=== PATIENT | female | born 1950 | race Caucasian/White ===

== ENCOUNTER 2017-09-04 10:01 | Emergency (ER) | payer MEDICARE, BC ==
[2017-09-04 10:21] VITALS: BP 104/58
--- NOTE | 2017-09-04 11:12 | UC ---
Skin Complaint HPI - HPI Summary HPI Summary: History of PMR as well as recurrent intertrigo in the left axilla. Began a steroid pulse pack for suspected flare of PMR, with an increase in left axillary rash. Has been applying lotrisone cream to the left axilla without relief of rash, and increasing pain in the armpit She has diffuse pain in the joints, especially in the neck area. Recent PT seemed to make this worse. Labs reviewed from last week; normal white count, CRP is 6.7. - History of Current Complaint Chief Complaint: UCSkin Time Seen by Provider: 09/04/17 10:58 Stated Complaint: SKIN COMPLAINT - LEFT ARMPIT Hx Obtained From: Patient Hx Last Menstrual Period: n/a Onset/Duration: Gradual Onset, Lasting Days - 4 Timing: Constant Onset Severity: Mild Current Severity: Moderate Pain Intensity: 5 Location: Discrete - left axilla only Aggravating Factor(s): Clothing, Touch Alleviating Factor(s): Other - position--holding her arm up Associated Signs & Symptoms: Positive: Negative Similar Episode/Dx as: intertrigo - Allergy/Home Medications Allergies/Adverse Reactions: Allergies Allergy/AdvReac Type Severity Reaction Status Date / Time carisoprodol Allergy Hives Verified 09/04/17 10:15 Sulfa (Sulfonamide Allergy Hives Verified 09/04/17 10:15 Antibiotics) azithromycin AdvReac Diarrhea Verified 09/04/17 10:15 Home Medications: Home Medications Ascorbic Acid TAB* [Vitamin C TAB*] 500 mg PO DAILY 09/04/17 [History Confirmed 09/04/17] Cholecalciferol TAB* [Vitamin D TAB*] 1,000 unit PO DAILY 09/04/17 [History Confirmed 09/04/17] Clotrimazole/Betamethasone* [Lotrisone Cream*] 1 applic TOPICAL TID 09/04/17 [ History Confirmed 09/04/17] Folic Acid TAB* [Folvite TAB*] 1 mg PO DAILY 09/04/17 [History Confirmed ] Methotrexate TAB* 7.5 mg PO FR 09/04/17 [History Confirmed 09/04/17] Hickman-3 Fatty Acids (Nf) [Fish Oil (NF)] 1,000 mg PO DAILY 09/04/17 [History Confirmed 09/04/17] Pantoprazole TAB (NF) [Protonix TAB (NF)] 40 mg PO DAILY 09/04/17 [History Confirmed 09/04/17] Rosuvastatin (NF) [Crestor (NF)] 10 mg PO DAILY 09/04/17 [History Confirmed ] SUMAtriptan TAB* [Imitrex TAB*] 100 mg PO SEE INSTRUCTIONS 09/04/17 [History Confirmed 09/04/17] Venlafaxine EXT RELEASE CAP* [Effexor Xr CAP*] 37.5 mg PO EVERY OTHER DAY [History Confirmed 09/04/17] metFORMIN* [Glucophage 500 MG TAB *] 500 mg PO BID 09/04/17 [History Confirmed 09/04/17] Review of Systems Constitutional: Fatigue Skin: Rash Musculoskeletal: Arthralgia, Myalgia Is Patient Immunocompromised?: Yes - potentially; on MTX All Other Systems Reviewed And Are Negative: Yes PMH/Surg Hx/FS Hx/Imm Hx - Additional Past Medical History Additional PMH: Polymyalgia rheumatica Endocrine History: Diabetes Other History Of: Anticoagulant Therapy - Aspirin. Negative For: HIV, Hepatitis B, Hepatitis C - Surgical History Surgical History: Yes Surgery Procedure, Year, and Place: 03/2014 RIGHT WRIST CARPAL TUNNEL RELEASE, [facility]; LT CARPAL TUNNEL RELEASE 2 MONTHS LATER, [facility] Cataract SURGERY 2015. right knee replacement - Family History Known Family History: Positive: Hypertension Negative: Cardiac Disease - Social History Occupation: Retired Lives: With Family Alcohol Use: None Substance Use Type: None Smoking Status (MU): Former Smoker Type: Cigarettes Amount Used/How Often: 1 PPD x 20 Years Have You Smoked in the Last Year: No When Did the Patient Quit Smoking/Using Tobacco: ~1992 - Immunization History Most Recent Influenza Vaccination: no Physical Exam Triage Information Reviewed: Yes Appearance: Well-Appearing - alert, looks chronically unwell, Well-Nourished, Pain Distress - mild Vital Signs: Initial Vital Signs Temp 98.6 F 09/04/17 10:10 Pulse 92 09/04/17 10:10 Resp 16 09/04/17 10:10 BP 104/58 09/04/17 10:10 Pulse Ox 99 09/04/17 10:10 Vital Signs Reviewed: Yes Eyes: Positive: Conjunctiva Inflamed ENT: Positive: Pharynx normal Neck: Positive: Supple, Nontender, No Lymphadenopathy Respiratory: Positive: Lungs clear, Normal breath sounds Cardiovascular: Positive: RRR, No Murmur Musculoskeletal Exam: Other - not fully assessed, tenderness in the sternomastoid area. Neurological: Positive: Alert, Muscle Tone Normal Psychological Exam: Normal Skin Exam: Other - left axilla with confluent area of erythema and skin maceration with satellite lesions, approx 10 x 12 cm area. Course/Dx - Course Course Of Treatment: nystatin and fluconazole for intertrigo. - Differential Diagnoses - Skin Complaint Differential Diagnoses: Cellulitis, Other - Candidal skin reaction - Diagnoses Provider Diagnoses: intertrigo left axilla Discharge - Sign-Out/Discharge Documenting (check all that apply): Discharge/Admit/Transfer - Discharge Plan Condition: Stable Disposition: HOME Prescriptions: Fluconazole 100 MG TAB* [Diflucan 100 MG TAB*] 100 mg PO DAILY #5 tab Nystatin TOP POWDER* 1 applic TOPICAL TID #1 btl Patient Education Materials: Skin Yeast Infection (ED) Referrals: Urban Tripp MD [Primary Care Provider] - Additional Instructions: Begin use of fluconazole 100mg once daily for 5 days to treat the infection in the left axilla. There is no apparent interaction with any of your medications, but stop this medication should you develop nausea or abdominal pain. After cleansing the skin in the left armpit with a warm clean wet facecloth, dry the area well followed by application of nystatin powder. You should see significant improvement in 2 to 3 days. Follow up with Dr. Menchaca as arranged. - Billing Disposition and Condition Condition: STABLE Disposition: HOME
== END 2017-09-04 11:43 | disposition home or self-care (01) ==
LOC: UCCORT 10:01
DX: L30.4 Erythema intertrigo (principal); Z88.1 Allergy status to other antibiotic agents; Z88.2 Allergy status to sulfonamides; Z88.8 Allergy status to other drugs, medicaments and biological substances; E11.9 Type 2 diabetes mellitus without complications; Z79.84 Long term (current) use of oral hypoglycemic drugs; M35.3 Polymyalgia rheumatica; Z87.891 Personal history of nicotine dependence
CPT/HCPCS: 99213; G0463

== ENCOUNTER 2017-09-28 11:50 | Emergency (ER) | payer MEDICARE, BC ==
--- OUTSIDE RECORDS SUMMARY | 2017-09-28 12:02 | XMS REPORT ---
:1950 External Reference #:[id number] Author Organization [facility] Address [address] [place] [address] Phone [phone] Care Team Providers Name Role Phone HCP given Primary Care Physician Unavailable Payers Type Date Identification Numbers Payment Provider Subscriber Medicare Primary Effective: Policy Number: [employer] [facility] Jane Magana 2014 [id number] Services PayID: [id number] [address] [place] [address] Medigap Part B Effective: Policy Number: Rachel Mccabe 2011 [id number] Ind/Ppo/Hmo/Pos Tiffany Group Number: INDEMNI [address] [address] Group Name: [id number] ADELITA Judd [id number] PayID: [id number] Problems Date Description Provider Status Onset: 11/24/2004 Generalized anxiety disorder Urban Tripp M.D. Active Onset: 06/04/2009 Intrinsic asthma without status Urban Tripp M.D. Active asthmaticus Onset: 06/04/2009 Allergic rhinitis Urban Tripp M.D. Active Onset: 03/28/2015 Vitamin D deficiency Jorge ePnn D.O. Active Onset: 04/07/2015 Neck pain Jorge Penn D.O. Active Onset: 09/15/2015 Obesity Urban Tripp M.D. Active Onset: 03/19/2016 Localized, primary osteoarthritis Urban Tripp M.D. Active Onset: 04/07/2016 Polymyalgia rheumatica Leida Zhu PA Active Onset: 08/22/2017 Type 2 diabetes mellitus Urban Tripp M.D. Active Family History Date Family Member(s) Problem(s) Comments Father Allergic Rhinitis Father Heart Disease Father Alzheimer's Disease Father Allergic rhinitis, heart disease, alzheimer's disease. Mother High Blood Pressure Mother Hypercholesterolemia Mother Arrhythmia tachyarrythmia, Dx'd in her 90s, caused recurrent syncope Mother High blood pressure, hypercholesterolemia Number of Siblings 1 brother Social History Type Date Description Comments Education Highest level completed=post grad Marital Status Patient is Employment Not currently working. Retired June ([employer]) Cigarette Use Denies Cigarette Use ETOH Use 11/03/2015 Denies alcohol use Personal Habits Denies cigarette use. Drinks on average 2 sodas a day. Moderate amount of sun exposure and pt states sometimes uses sunscreen. Always uses a seat belt. Sexual Hx The patient is currently sexually active. First intercourse was at age 20. The patient has had 3 sexual partners. Pt states she is heterosexual. Allergies, Adverse Reactions, Alerts Date Description Reaction Status Severity Comments 03/25/2004 Soma Compound active Hives 03/25/2004 Sulfa active in childhood 11/16/2011 Zithromax active extreme diarrhea Medications Medication Date Status Form Strength Qnty SIG Indications Ordering Provider Itraconazole 09/10 Active Capsules 100mg 120ca take 2 R21 ps capsule by Jorge, mouth every D.O. 12 hours for 1 month Ciclopirox 09/10 Active Solution 8% 13.2m apply to B37.2 [facility] right foot Jorge, nails D.O. adjacent skin and affected nails daily remove weekly with nail alcohol Folic Acid 08/31 Active Tablets 1mg 30tab 1 tablet by Unknown s mouth daily Metformin HCL 08/22 Active Tablets 500mg 1 by mouth E11.65 Silcoshaina, every day Vadim Duggan PT For Right 08/22 Active evaluate and M25.511 Silcoshaina, Shoulder Pain treatUrban modalities as M.DLiborio needed, instruct in hep Methotrexate 08/21 Active Tablets 2.5mg 3 tabs M06.00 Unknown (7.5mg) by mouth once weekly for lupus Rosuvastatin 05/06 Active Tablets 10mg 90tab take one E11.65 Qasim, Calcium s tablet by grzegorz Duggan every M.D. day to lower cholesterol and reduce risk of heart disease Phendimetrazine 03/19 Active Tablets 35mg 180ta 2 by mouth E66.9 Silcoff, Tartrate bs three times a Urban, day 1 hour M.D. before meals; for weight loss Vitamin D 03/18 Active one po daily Clotrimazole/Bet 12/27 Active Cream 1-0.05% 45uni apply to B37.2 Fili amethasone ts affected area Jorge, Dipropionate in left D.O. armpit 3 times a day as needed for rash Freestyle Lite 06/29 Active Strips 200un or E11.65 Sopchak, Test its appropriate Jorge, testing D.O. strips for patients device, test 1-4 times daily as directed Hydrocodone-Acet 04/07 Active Tablets 5-325mg 60tab 1 tablet M25.561 Silcoff, aminophen s every 6 hours Urban, as needed for M.D. severe pain Rogaine 03/18 Active Solution 2% apply twice daily Fish Oil 03/31 Active Capsules one po daily Hydroxyzine HCL 03/10 Active Tablets 25mg 90tab 1 by mouth Silcoff s three times a Urban, day as needed M.D. for itching or sleep Pantoprazole 09/25 Active Tablets 40mg 90tab Take 1 Tablet K21.9 Silcoff, Sodium DR eckert Daily For Urban Acid Reflux M.D. Antacid 09/24 Active Chewtabs as needed Venlafaxine HCL 06/26 Active Caps ER 37.5mg 90cap Take 1 F41.1 Silcoff, ER 24HR s Capsule Every Urban, One To Two M.D. Days For Anxiety Imitrex 01/27 Active Tablets 100mg 27tab 04/12-1 at G43.009 Silcoff s onset of Urban migraine; august M.D. repeat once after 2 hours if needed Calcium + D3 0000 Active Tablets 600-200 1 po daily Unknown Actemra 0000 Active Soln 162mg/0.9 Inject 1 M06.00 Unknown / Prefill ML Syringe Syringe Subcutaneousl y Every 2 Weeks Fluconazole 09/08 Hx Tablets 150mg 9tabs 2 tabs by R21 Qasim mouth day Urban - one, then 1 M.D. 09/10 po x 7 days Prednisone 09/02 Hx Tablets 10mg 30tab taper as Nupur Menchaca s directed x 8 nidia M.D. - days 09/10 Nystatin 12/10 Hx Cream 372121Qdl 30gm apply to B37.2 Silcoff t/GM affected area Payam Duggan (left armpit) M.D. 12/27 three times a day until clear; resume as needed Columbia For Fungus 12/09 Hx Unknown Infection - 03/18 Prednisone 09/20 Hx Tablets 1mg take 6 Nupur Menchaca tablets by nidia M.D. - mouth once 08/21 daily, taper as directed (by 1mg/month) Metformin HCL 07/02 Hx Tablets 500mg 180ta 1 by mouth E11.65 Qasim bs twice a day Urban - for blood M.D. 08/22 sugar control Freestyle Lite 06/29 Hx Device 1unit or any other E11.65 Sopchak, Blood Glucose s covered Jorge, Monitoring - glucometer by D.O. System 12/092017 insurance. Prednisone 06/15 Hx Tablets 10mg 2 tablets Bernarda daily nidia M.D. - 09/20 Methotrexate 06/15 Hx Tablets 2.5mg 4 tablets by M06.00 Nupur Menchaca mouth every nidia M.D. - week; adjust 08/21 dose as directed; for Ra Prednisone 04/07 Hx Tablets 10mg as directed, Nupur Menchaca tapering down nidia M.D. - 06/15 Doxycycline 04/01 Hx Capsules 100mg 20cap 1 capsule po Unknown Hyclate s twice daily x - 10 days 04/11 PT For Back Pain 03/19 Hx evaluate and M25.561 Silcoff, And Right Knee treat, Urban, Pain - instruct in M.D. 06/15 hep, modalities prn. M54.5 PT For Back Pain, 12/24/2015 - Hx M25.561 Silcoff, Radiculopathy (L 03/19/2016 Urban, Foot), Bilateral Knee M.D. OA PT For Bilateral Knee 10/18/2015 - Hx Silcoff, Pain 12/24/2015 Vadim Duggan Womens Multi 09/15/2015 - Hx 1 po daily Unknown 09/20/2016 Phendimetrazine 09/15/2015 - Hx Tablets 35mg 180t 2 by mouth E66.9 Silcoff, Tartrate 12/09/2016 abs three times Urban, a day 1 M.D. hour before meals; for weight loss Voltaren 09/12/2015 - Hx Gel 1% as directed Unknown 09/20/2016 Methylprednisolone 09/11/2015 - Hx Tablets 4mg 1 po daily M79.1 Unknown 10/03/2015 M34.81 M25.50 Plaquenil 08/15/2015 - Hx Tablets 200mg 2 tablets Unknown 03/19/2016 once daily Hydrocodone-Acetaminop 04/14/2015 - Hx Tablets 5-325mg 60ta 1 tabletq 4 M25. Fili, hen 06/25/2015 bs hours as 561 Jorge, needed for D.O. severe pain Vitamin D3 03/28/2015 - Hx Tablets 5000Unit 90ta 1 tab by E55. Fili, 09/20/2016 bs mouth every 9 Jorge, day or 7 D.O. tabs once a week Methylprednisolone 03/20/2015 - Hx Tablets 4mg 150t 6mg daily M79. Fili, 09/15/2015 abs 1 Jorge, D.O. M34.81 M25.50 Methylprednisolone 03/13/2015 - Hx Tablets 4mg 21tabs 24 mg(6 [facility] 03[facility] tablets) on Jorge, day 1, 20 mg D.O. (5 tablets) on day 2, 16 mg (4 tablets) on day 3, 12 mg (3 tablets)day 4, then 2 then 1 tab Hydrocortisone 03/03/2015 - Hx Ointment 2.5% Unknown 04/22/2015 Phendimetrazine 12/09/2014 - Hx Tablets 35mg 180tabs 2 by mouth E66.9 Sopchak, Tartrate 04/22/2015 up to three Jorge, times a day D.O. for weight loss Phendimetrazine 08/21/2014 - Hx Caps ER 105mg 30caps 1 capsule 278.00 Silcoff, Tartrate ER 12/09/2014 24HR daily in the kristina Duggan M.D. ideally an hour before breakfast Phendimetrazine 06/19/2014 - Hx Tablets 35mg 90tabs 1 by mouth 278.00 Silcoff, Tartrate 08/21/2014 three times Urban, a day 1hr M.D. before meals; for weight loss Cetirizine HCL 09/25/2013 - Hx Tablets 10mg 1 by mouth 708.9 Silcoff, 04/22/2015 every day as Urban needed for M.D. hives PT For Suspected 07/31/2013 - Hx please 338.29 Silcoff, Bilateral Piriformis 09/24/2013 evaluate and Urban Syndrome Vadim paniagua instruct in hep, modalities prn Ventolin HFA 06/26/2013 - Hx Aerosol 108(9 54units Use 2 Puffs 786.09 Silcoff, 12/09/2016 0Base Every 4 Urban ) Hours as Vadim mcg/A Needed And ct Use 15 To 30 Minutes Before Exercise 493.10 PT For Suspected 01/09/2013 - Hx please 338.29 Silcoff, Bilateral 06/25/2013 evaluate and Vadim Duggan Piriformis treat, Syndrome instruct in hep, modalities prn Venlafaxine HCL 12/08/2012 - Hx Caps ER 37.5 90ca 1 by mouth 300.02 Silcoff, ER 06/26/2013 24HR mg ps every day for Vadim Duggan anxiety Qsymia 09/22/2012 - Hx Caps ER 11.2 30ca 1 by mouth 278.00 Silcoff, 06/26/2013 24HR 5-69 ps every morning Vadim Duggan mg for weight loss Qsymia 03/14/2012 - Hx Caps ER 3.75 14ca 1 by mouth 278.00 Silcoff, 03/28/2012 24HR -23m ps every morning Vadim Duggan g for 2 weeks, then switch to the 7.5/46mg strength Qsymia 03/14/2012 - Hx Caps ER 7.5- 30ca 1 by mouth 278.00 Silcoff, 09/22/2012 24HR 46mg ps every morning Vadim Duggan for weight loss PT For Bilat 11/16/2011 - Hx evaluate and 719.45 Silcoff, Buttock Pain 05/16/2012 treatUrban M.D. (Suspected instruct in Piriformis hep, Syndrome) modalities prn Azithromycin 08/30/2011 - Hx Tablets 250m 6tab 2 by mouth 786.2 Silcoff , 09/04/2011 g s once today Vadim Duggan then 1 by mouth once daily for 4 more days B Complex 08/30/2011 - Hx Tablets 1 by mouth 327.52 Silcoff, 06/26/2013 once daily for Vadim Duggan muscle cramps; stop after a couple of months if not helpful Qvar 08/02/2011 - Hx Aerosol 80mc 26.1 2 puffs 493.10 Silcoff, 06/26/2013 g/Ac gm 2x/day; constance Duggan M.D. t after use 493.12 Prednisone 08/01/2011 - Hx Tablets 20mg 6tabs 2 tabs once 493.12 Unknown 08/04/2011 daily for 3 days Xopenex 08/01/2011 - Hx Nebulizer 1.25mg/3ML 1 nebule every 493.12 Unknown 07/31/2012 6hrs as needed for asthma symptoms 493.10 Tramadol HCL 08/06/2010 - Hx Tablets 50mg 40tabs 1-2 q6 hrs 724.3 Silcoff, 10/29/2010 Vadim Duggan Fluticasone 06/04/2009 - Hx Suspension 50mcg/A 3units 2 sprays 477.9 Silcoff, Propionate 09/22/2012 ct into each Urban nostril qd M.DLiborio prn for nasal allergies Ventolin HFA 04/19/2009 - Hx Aerosol 108(90B 18gm 2 puffs q4h 786.09 Silcoff, 06/26/2013 ase) prn; use wili Duggan/christa 15-30min M.DLiborio before exercise 493.10 Alprazolam 03/14/2009 - Hx Tablets 0.5mg 20tabs 1/2-1 po q4h 300.02 Silcoff, 06/26/2013 prn for adelina Duggan M.D. Loratadine 09/11/2008 - Hx Tablets 10mg 1 po qd prn 477.9 Silcoff, 06/26/2013 for paige Duggan M.D. PT For Lumbar 04/19/2008 - Hx evaluate and 724.4 Silcoff, Radiculopathy 09/10/2008 Urban paniagua, (VS Ischial modalities Sissy.Jannie Bursitis) Left prn, Side instruct in hep Medrol Dosepak 04/19/2008 - Hx Tablets 4mg 1Pack use as 724.4 Silcoff, 04/25/2008 directed Vadim Duggan Tramadol HCL 04/19/2008 - Hx Tablets 50mg 30tabs 1-2 po q6h 724.4 Silcoff, 09/10/2008 prn for pain Vadim Duggan PT For R 04/04/2008 - Hx evaluate and 719.41 Silcoff, Shoulder Pain 09/10/2008 treatUrban, instruct in MCyril Hep, modalities prn Effexor XR 09/22/2007 - Hx Caps ER 37.5mg 90caps 1 by mouth 300.02 Silcoff, 12/08/2012 24HR every day leigh Duggan anxiety Vadim Topamax 09/19/2006 - Hx Tablets 50mg 180tabs 1 PO bid 784.0 Silcoff, 09/10/2008 Vadim Duggan 346.10 Optivar 01/19/2006 - Hx Solution 0.05% 1units 1 gt bid prn To 372.14 Silcoff, 09/10/2008 Affected Eye(S) Vadim Duggan Topamax 07/13/2005 - Hx Tablets 25mg 360tabs 2po qam, 1 po 784.0 Silcoff, 09/19/2006 in late Vadim Duggan afternoon; in crease the afternoon dose to 2 pills after 1 week if tolerating it well 346.10 Effexor XR 04/13/2005 - Hx Capsules 75mg 90caps 1 po qd 300.02 Silcoff, 09/22/2007 Vadim Duggan Axert 04/13/2005 - Hx Tablets 12.5mg 18tabs 1 po prn 784.0 Silcoff, 01/27/2007 migraineUrban M.D. may repeat in 2 hours 346.10 Relpax 03/12/2005 - Hx Tablets 40mg 1Sample 1 pill daily 784.0 Silcoff, 04/13/2005 as needed for Urban migraines; M.DLiborio may repeat dose after 2 hours; maximum 2 pills in 24 hours. Effexor XR 03/12/2005 - Hx Capsules 37.5mg 60caps 1 po qd for 1 300.02 Silcoff, 04/13/2005 week then 2 Urban, po qd Vadim Lexapro 11/24/2004 - Hx Tablets 10mg 30tabs 1 po qd 300.02 Silcoff, 03/12/2005 Vadim Duggan Amoxicillin 03/25/2004 - Hx Tablets 500mg 30tabs 1 po tid 461.9 Silcoff , 04/04/2004 Vadim Duggan Flexeril 03/25/2004 - Hx Tablets 10mg 30tabs 1/2 - 1 po 723.1 Silcoff, 04/24/2004 tid prn for Urban neck pain Vadim Amoxil 02/05/2004 - Hx Tablets 500mg 30tabs 1 po tid for 461.9 Silcoff, 02/15/2004 10 days for Urban sinusitis Sissy.DLiborio Alprazolam 11/22/2003 - Hx Tablets 0.5mg 180tabs 1-2 po q4h 300.02 klepack 09/10/2008 anxiety Flonase 11/22/2003 - Hx Columbia 50mcg/Sp 3units 2 sprays in 477.8 Silcoff , 09/10/2008 ray each nostril Urban once A day M.DLiborio prn 477.9 Ibuprofen - Hx 200mg as needed Unknown 04/22/2015 Calcium/Vit D - Hx Tablets 750mg 1 po qd Unknown 06/26/2013 H1N1 Swine Flu - Hx Injection Silcoff, Vaccine 06/04/2009 Vadim Duggan Immunizations CPT Code Status Date Vaccine Lot # [id number] Given 12/24/2015 Pneumococcal Immunization [id number] 62090 Given 12/24/2015 Influenza Vaccine Split Virus Preservative Free Im [id number] Use 04508 Given 02/18/2015 Influenza Vaccine Split Virus Preservative Free [id number] Use 38587 Given 12/16/2014 Influenza Virus Vaccine, Quadrivalent, Split, Preservative Free 13694 Given 12/09/2014 Prevnar 13 [id number] 68870 Given 01/09/2013 Zostavax [id number] 35892 Given 01/09/2013 Flu, Split Virus 3Yrs [id number] 84001 Given 03/23/2010 Flu, Split Virus 3Yrs 49714 Given 12/02/2009 Pneumococcal Immunization [id number] 38118 Given 12/02/2009 Adacel or Boostrix, TDaP [id number] Refused 05/17/2011 Zostavax [id number] Refused 06/04/2009 Flu, Split Virus 3Yrs Vital Signs Date Vital Result Comment 09/10/2017 Body Temperature 97.8 F 09/08/2017 BP Systolic 122 mmHg BP Diastolic 80 mmHg Body Temperature 97.8 F 08/22/2017 BP Systolic 120 mmHg BP Diastolic 72 mmHg Height 61.25 inches 5'1.25" with shoes Weight 181.00 lb with shoes BMI (Body Mass Index) 33.9 kg/m2 05/06/2017 BP Systolic 130 mmHg BP Diastolic 85 mmHg Weight 177.00 lb 03/19/2017 Weight 179.00 lb 12/10/2016 BP Systolic 142 mmHg BP Diastolic 80 mmHg BP Systolic Recheck 128 mmHg BP Diastolic Recheck 70 mmHg Height 61 inches 5'1" Weight 178.00 lb BMI (Body Mass Index) 33.6 kg/m2 09/21/2016 BP Systolic 140 mmHg BP Diastolic 90 mmHg Weight 167.00 lb 06/29/2016 BP Systolic 118 mmHg BP Diastolic 74 mmHg 06/16/2016 BP Systolic 122 mmHg BP Diastolic 78 mmHg Height 60.75 inches 5'0.75" Weight 171.00 lb BMI (Body Mass Index) 32.6 kg/m2 04/07/2016 BP Systolic 130 mmHg BP Diastolic 78 mmHg 03/19/2016 BP Systolic 128 mmHg BP Diastolic 80 mmHg Weight 171.00 lb 12/24/2015 BP Systolic 112 mmHg BP Diastolic 74 mmHg Weight 171.00 lb 11/03/2015 BP Systolic 122 mmHg BP Diastolic 78 mmHg Height 61.25 inches 5'1.25" with shoes Weight 177.00 lb with shoes BMI (Body Mass Index) 33.2 kg/m2 09/15/2015 BP Systolic 112 mmHg BP Diastolic 80 mmHg Weight 185.00 lb /shoes 04/22/2015 BP Systolic 124 mmHg BP Diastolic 72 mmHg Height 60.50 inches 5'0.50" Weight 173.00 lb BMI (Body Mass Index) 33.2 kg/m2 04/14/2015 BP Systolic 120 mmHg BP Diastolic 80 mmHg Weight 173.00 lb with shoes 04/07/2015 BP Systolic 138 mmHg BP Diastolic 80 mmHg Weight 174.00 lb with shoes 03/28/2015 BP Systolic 137 mmHg BP Diastolic 79 mmHg Heart Rate 96 /min 03/13/2015 BP Systolic 120 mmHg BP Diastolic 80 mmHg Body Temperature 98.2 F 02/18/2015 BP Systolic 132 mmHg BP Diastolic 82 mmHg Weight 180.00 lb with shoes 12/09/2014 BP Systolic 128 mmHg BP Diastolic 70 mmHg Weight 180.00 lb 10/02/2014 BP Systolic 130 mmHg BP Diastolic 74 mmHg Heart Rate 80 /min reg Respiratory Rate 12 /min not laboured Height 60.75 inches 5'0.75" Weight 180.00 lb BMI (Body Mass Index) 34.3 kg/m2 08/21/2014 BP Systolic 138 mmHg BP Diastolic 70 mmHg Weight 183.00 lb w/shoes 06/19/2014 BP Systolic 118 mmHg BP Diastolic 70 mmHg Heart Rate 74 /min reg Height 61 inches 5'1" Weight 182.00 lb BMI (Body Mass Index) 34.4 kg/m2 12/19/2013 BP Systolic 120 mmHg BP Diastolic 82 mmHg Weight 179.00 lb 09/25/2013 BP Systolic 100 mmHg BP Diastolic 66 mmHg Heart Rate 84 /min reg Respiratory Rate 12 /min not laboured Height 60.75 inches 5'0.75" Weight 179.00 lb BMI (Body Mass Index) 34.1 kg/m2 06/26/2013 BP Systolic 112 mmHg BP Diastolic 84 mmHg Weight 176.00 lb 03/19/2013 BP Systolic 120 mmHg BP Diastolic 88 mmHg Height 60.75 inches 5'0.75" Weight 175.00 lb BMI (Body Mass Index) 33.3 kg/m2 01/09/2013 BP Systolic 138 mmHg BP Diastolic 80 mmHg Weight 174.00 lb 09/22/2012 BP Systolic 110 mmHg BP Diastolic 74 mmHg Weight 182.00 lb BMI (Body Mass Index) 3.9 kg/m2 05/17/2012 BP Systolic 124 mmHg BP Diastolic 80 mmHg Height 60.25 inches 5'0.25" Weight 186.00 lb BMI (Body Mass Index) 36.0 kg/m2 11/16/2011 BP Systolic 128 mmHg BP Diastolic 78 mmHg Weight 184.00 lb Last Menstrual Period 0 08/30/2011 BP Systolic 120 mmHg BP Diastolic 82 mmHg Heart Rate 88 /min reg Respiratory Rate 16 /min not laboured Body Temperature 98.5 F Height 60 inches 5'0" Weight 188.00 lb BMI (Body Mass Index) 36.7 kg/m2 Last Menstrual Period 0 08/02/2011 BP Systolic 136 mmHg BP Diastolic 82 mmHg Heart Rate 90 /min reg Respiratory Rate 16 /min not laboured O2 % BldC Oximetry 97 % at rest 05/17/2011 BP Systolic 106 mmHg BP Diastolic 78 mmHg 10/30/2010 BP Systolic 110 mmHg BP Diastolic 78 mmHg 08/06/2010 BP Systolic 111 mmHg BP Diastolic 79 mmHg Heart Rate 89 /min 07/23/2010 BP Systolic 143 mmHg BP Diastolic 88 mmHg Heart Rate 85 /min 05/08/2010 BP Systolic 128 mmHg BP Diastolic 80 mmHg 12/02/2009 BP Systolic 118 mmHg BP Diastolic 78 mmHg Height 61 inches 5'1" Weight 180.00 lb BMI (Body Mass Index) 34.0 kg/m2 06/04/2009 BP Systolic 110 mmHg BP Diastolic 78 mmHg 06/04/2009 BP Systolic 110 mmHg BP Diastolic 78 mmHg 03/14/2009 BP Systolic 148 mmHg BP Diastolic 98 mmHg BP Systolic Recheck 132 mmHg R arm sitting; 122/84 L arm BP Diastolic Recheck 96 mmHg R arm sitting; 122/84 L arm Respiratory Rate 16 /min not laboured Weight 177.00 lb 02/17/2009 BP Systolic 118 mmHg BP Diastolic 80 mmHg Body Temperature 98.6 F Weight 173.00 lb Last Menstrual Period 0 09/11/2008 BP Systolic 130 mmHg BP Diastolic 84 mmHg Weight 175.00 lb 04/19/2008 BP Systolic 142 mmHg BP Diastolic 80 mmHg Weight 177.00 lb 03/13/2008 BP Systolic 124 mmHg BP Diastolic 82 mmHg Height 61.25 inches 5'1.25" Weight 177.00 lb BMI (Body Mass Index) 33.2 kg/m2 09/22/2007 BP Systolic 118 mmHg BP Diastolic 78 mmHg Height 61.25 inches 5'1.25" Weight 172.00 lb BMI (Body Mass Index) 32.2 kg/m2 03/22/2007 BP Systolic 120 mmHg BP Diastolic 96 mmHg BP Systolic Recheck 136 mmHg R arm sitting BP Diastolic Recheck 90 mmHg R arm sitting Height 61.25 inches 5'1.25" Weight 166.00 lb BMI (Body Mass Index) 31.1 kg/m2 Last Menstrual Period 0 09/19/2006 BP Systolic 114 mmHg BP Diastolic 80 mmHg Height 61.25 inches 5'1.25" Weight 158.00 lb BMI (Body Mass Index) 29.6 kg/m2 Last Menstrual Period 0 04/27/2006 BP Systolic 116 mmHg BP Diastolic 68 mmHg Height 61.25 inches Weight 157.00 lb BMI (Body Mass Index) 29.4 kg/m2 01/19/2006 BP Systolic 136 mmHg BP Diastolic 82 mmHg Height 61 inches 5'1" Today With Shoes 10/20/04 Weight 157.00 lb BMI (Body Mass Index) 29.7 kg/m2 10/20/2005 BP Systolic 140 mmHg BP Diastolic 75 mmHg BP Systolic Recheck 120 mmHg BP Diastolic Recheck 75 mmHg Height 61 inches 5'1" Today With Shoes 10/20/04 Weight 150.00 lb BMI (Body Mass Index) 28.3 kg/m2 07/13/2005 BP Systolic 134 mmHg BP Diastolic 90 mmHg Heart Rate 74 /min reg Height 61.25 inches 5'1.25" Weight 158.00 lb BMI (Body Mass Index) 29.6 kg/m2 07/13/2005 Height 61.25 inches 5'1.25" 07/13/2005 BP Systolic 134 mmHg BP Diastolic 90 mmHg Height 61.25 inches 5'1.25" Weight 158.00 lb BMI (Body Mass Index) 29.6 kg/m2 04/13/2005 BP Systolic 118 mmHg BP Diastolic 80 mmHg Height 61.25 inches 5'1.25" Weight 151.00 lb BMI (Body Mass Index) 28.3 kg/m2 03/12/2005 BP Systolic 120 mmHg BP Diastolic 82 mmHg Height 61.25 inches 5'1.25" Weight 155.00 lb BMI (Body Mass Index) 29.0 kg/m2 12/29/2004 BP Systolic 100 mmHg BP Diastolic 60 mmHg Height 61.25 inches 5'1.25" Weight 145.00 lb BMI (Body Mass Index) 27.2 kg/m2 11/24/2004 BP Systolic 110 mmHg BP Diastolic 72 mmHg Weight 142.00 lb Last Menstrual Period 0 03/25/2004 BP Systolic 92 mmHg BP Diastolic 68 mmHg Body Temperature 98.1 F Weight 140.00 lb 02/05/2004 Body Temperature 97.8 F Weight 137.00 lb 11/22/2003 BP Systolic 114 mmHg BP Diastolic 76 mmHg Weight 135.00 lb Results Test Date Test Result H/L Range Note Laboratory test finding 09/02/2017 Hemoglobin A1c (Glyco 5.9 % High 4.0- 5.6 1 HGB) Comp Metabolic Panel 09/02/2017 Sodium 139 mmol/L 139-145 Potassium 4.0 mmol/L 3.5-5.0 Chloride 105 mmol/L 101-111 Co2 Carbon Dioxide 25 mmol/L 22-32 Anion Gap 9 mmol/L 2-11 Glucose 156 mg/dL High 70-100 Blood Urea Nitrogen 19 mg/dL 6-24 Creatinine 0.99 mg/dL High 0.51-0.95 BUN/Creatinine Ratio 19.2 8-20 Calcium 9.2 mg/dL 8.6-10.3 Total Protein 6.3 g/dL Low 6.4-8.9 Albumin 4.4 g/dL 3.2-5.2 Globulin 1.9 g/dL Low 2-4 Albumin/Globulin Ratio 2.3 1-3 Total Bilirubin 0.40 mg/dL 0.2-1.0 Alkaline Phosphatase 59 U/L 34-104 Alt 28 U/L 7-52 Ast 30 U/L 13-39 Egfr Non- 55.9 >60 Egfr 72.0 >60 2 Laboratory test finding 09/02/2017 C Reactive Protein 6.74 mg/L High < 5.00 3 CBC Auto Diff 09/02/2017 White Blood Count 4.7 10^3/uL 3.5-10.8 Red Blood Count 4.43 10^6/uL 4.0-5.4 Hemoglobin 14.2 g/dL 12.0-16.0 Hematocrit 42 % 35-47 Mean Corpuscular Volume 95 fL 80-97 Mean Corpuscular Hemoglobin 32 pg High 27-31 Mean Corpuscular HGB Conc 34 g/dL 31-36 Red Cell Distribution Width 14 % 10.5-15 Platelet Count 183 10^3/uL 150-450 Mean Platelet Volume 7.8 um3 7.4-10.4 Abs Neutrophils 3.6 10^3/uL 1.5-7.7 Abs Lymphocytes 0.7 10^3/uL Low 1.0-4.8 Abs Monocytes 0.3 10^3/uL 0-0.8 Abs Eosinophils 0 10^3/uL 0-0.6 Abs Basophils 0 10^3/uL 0-0.2 Abs Nucleated RBC 0 10^3/uL Granulocyte % 77.6 % 38-83 Lymphocyte % 15.3 % Low 25-47 Monocyte % 6.2 % 0-7 Eosinophil % 0.6 % 0-6 Basophil % 0.3 % 0-2 Nucleated Red Blood Cells % 0.1 Laboratory test finding 09/02/2017 Erythrocyte Sed Rate 9 mm/Hr 0-40 4 Laboratory test finding 08/22/2017 Occult Blood, F I T negative Urine Micro Inhouse 08/22/2017 Ua WBC 0-1 5 Ua RBC - 5 Ua Casts - 5 Ua Epi 3-5 5 Ua Other - 5 Ua Glucose - 5 Ua Bilirubin - 5 Ua Ketones - 5 Ua Specific [place] 1.010 5 Ua Blood - 5 Ua PH 6.0 5 Ua Protein tr 5 Ua Urobilinogen - 5 Ua Nitrite - 5 Ua Leukocytes tr 5 Laboratory test finding 06/24/2017 Erythrocyte Sed Rate 6 mm/Hr 0-40 6, 7 CBC Auto Diff 06/24/2017 White Blood Count 5.0 10^3/uL 3.5-10.8 6 Red Blood Count 4.25 10^6/uL 4.0-5.4 6 Hemoglobin 13.8 g/dL 12.0-16.0 6 Hematocrit 41 % 35-47 6 Mean Corpuscular Volume 95 fL 80-97 6 Mean Corpuscular Hemoglobin 33 pg High 27-31 6 Mean Corpuscular HGB Conc 34 g/dL 31-36 6 Red Cell Distribution Width 14 % 10.5-15 6 Platelet Count 282 10^3/uL 150-450 6 Mean Platelet Volume 8 um3 7.4-10.4 6 Abs Neutrophils 1.7 10^3/uL 1.5-7.7 6 Abs Lymphocytes 2.4 10^3/uL 1.0-4.8 6 Abs Monocytes 0.5 10^3/uL 0-0.8 6 Abs Eosinophils 0.4 10^3/uL 0-0.6 6 Abs Basophils 0 10^3/uL 0-0.2 6 Abs Nucleated RBC 0 10^3/uL 6 Granulocyte % 34.7 % Low 38-83 6 Lymphocyte % 47.3 % High 25-47 6 Monocyte % 10.0 % High 0-7 6 Eosinophil % 7.1 % High 0-6 6 Basophil % 0.9 % 0-2 6 Nucleated Red Blood Cells % 0 6 Laboratory test finding 06/24/2017 C Reactive Protein < 1.00 mg/L &lt ; 5.00 6, 8 Comp Metabolic Panel 06/24/2017 Sodium 138 mmol/L 133-145 6 Potassium 4.8 mmol/L 3.5-5.0 6 Chloride 107 mmol/L 101-111 6 Co2 Carbon Dioxide 23 mmol/L 22-32 6 Anion Gap 8 mmol/L 2-11 6 Glucose 96 mg/dL 70-100 6 Blood Urea Nitrogen 23 mg/dL 6-24 6 Creatinine 1.02 mg/dL High 0.51-0.95 6 BUN/Creatinine Ratio 22.5 High 8-20 6 Calcium 9.8 mg/dL 8.6-10.3 6 Total Protein 6.3 g/dL Low 6.4-8.9 6 Albumin 4.5 g/dL 3.2-5.2 6 Globulin 1.8 g/dL Low 2-4 6 Albumin/Globulin Ratio 2.5 1-3 6 Total Bilirubin 0.60 mg/dL 0.2-1.0 6 Alkaline Phosphatase 49 U/L 34-104 6 Alt 30 U/L 7-52 6 Ast 24 U/L 13-39 6 Egfr Non- 54.1 >60 6 Egfr 69.5 >60 6, 9 Laboratory test finding 05/06/2017 Hemoglobin A1c 5.5 Urinalysis With Microscopic 12/28/2016 Urine Color YELLOW Yellow 10 Urine Clarity CLEAR Clear 10 Urine Glucose - Dipstick NEGATIVE mg/dL Negative 10 Urine Bilirubin - Dipstick NEGATIVE Negative 10 Urine Ketone NEGATIVE mg/dL Negative 10 Urine Specific [place] <=1.005 Low 1.010-1.030 10 Urine Blood TRACE Negative 10 Urine PH 5.0 Low 6.5-7.5 10 Urine Protein - Dipstick NEGATIVE mg/dL Negative 10 Urine Urobilinogen - Dipstick 0.2 E.U./dL 0.2-1.0 10 Urine Nitrite - Dipstick NEGATIVE Negative 10 Urine Leuk Esterase SMALL Negative 10 Urine RBC NONE SEEN rbc/hpf 0-2 10 Urine WBC 0-2 wbc/hpf 0-7 10 Urine Epithelial Cells VERY FEW /lpf None Seen 10 Urine Bacteria VERY FEW None Seen 10 Source: URINE, CLEAN CAT <SEE 10, 11 NOTE> Partial Thrombo Time 12/28/2016 Act Partial Thrombo 23.6 seconds 23.4- 35.0 10 PTT Time Anticoagulant Therapy? Unknown 10 Inr/Protime 12/28/2016 Protime 11.6 seconds Low 12.0-14.4 10 Inr 0.9 0.9-1.1 10, 12 Anticoagulant Therapy? Unknown 10 Urine Culture And Sensitivities 12/28/2016 Urine Culture URETHRAL MILEY 10 Quantity 10,000 - 50,000 <SEE NOTE> 10, 13 Laboratory test finding 12/10/2016 Erythrocyte Sed Rate 9 mm/Hr 0-40 14 CBC Auto Diff 12/10/2016 White Blood Count 6.9 10^3/uL 3.5-10.8 Red Blood Count 4.55 10^6/uL 4.0-5.4 Hemoglobin 14.4 g/dL 12.0-16.0 Hematocrit 43 % 35-47 Mean Corpuscular Volume 95 fL 80-97 Mean Corpuscular Hemoglobin 32 pg High 27-31 Mean Corpuscular HGB Conc 33 g/dL 31-36 Red Cell Distribution Width 15 % 10.5-15 Platelet Count 331 10^3/uL 150-450 Mean Platelet Volume 8 um3 7.4-10.4 Abs Neutrophils 4.9 10^3/uL 1.5-7.7 Abs Lymphocytes 1.5 10^3/uL 1.0-4.8 Abs Monocytes 0.4 10^3/uL 0-0.8 Abs Eosinophils 0.1 10^3/uL 0-0.6 Abs Basophils 0 10^3/uL 0-0.2 Abs Nucleated RBC 0 10^3/uL Granulocyte % 70.2 % 38-83 Lymphocyte % 21.4 % Low 25-47 Monocyte % 6.5 % 1-9 Eosinophil % 1.2 % 0-6 Basophil % 0.7 % 0-2 Nucleated Red Blood Cells % 0 Laboratory test finding 12/10/2016 C Reactive Protein < 1.00 mg/L &lt ; 5.00 15 Comp Metabolic Panel 12/10/2016 Sodium 141 mmol/L 133-145 Potassium 4.4 mmol/L 3.5-5.0 Chloride 107 mmol/L 101-111 Co2 Carbon Dioxide 23 mmol/L 22-32 Anion Gap 11 mmol/L 2-11 Glucose 108 mg/dL High 70-100 Blood Urea Nitrogen 28 mg/dL High 6-24 Creatinine 1.14 mg/dL High 0.51-0.95 BUN/Creatinine Ratio 24.6 High 8-20 Calcium 10.2 mg/dL 8.6-10.3 Total Protein 6.6 g/dL 6.4-8.9 Albumin 4.5 g/dL 3.2-5.2 Globulin 2.1 g/dL 2-4 Albumin/Globulin Ratio 2.1 1-3 Total Bilirubin 0.50 mg/dL 0.2-1.0 Alkaline Phosphatase 50 U/L 34-104 Alt 25 U/L 7-52 Ast 22 U/L 13-39 Egfr Non- 47.5 >60 Egfr 61.1 >60 16 Laboratory test finding 09/21/2016 Hemoglobin A1c 6.3 Laboratory test finding 08/16/2016 Point of Care Glucose 129 mg/dL High 74 -106 17 Basic Metabolic Panel 07/26/2016 Sodium 138 mmol/L 133-145 Potassium 3.9 mmol/L 3.5-5.0 Chloride 104 mmol/L 101-111 Co2 Carbon Dioxide 26 mmol/L 22-32 Anion Gap 8 mmol/L 2-11 Glucose 122 mg/dL High 70-100 Blood Urea Nitrogen 25 mg/dL High 6-24 Creatinine 1.06 mg/dL High 0.51-0.95 BUN/Creatinine Ratio 23.6 High 8-20 Calcium 9.8 mg/dL 8.6-10.3 Egfr Non- 51.9 >60 Egfr 66.7 >60 18 Laboratory test 07/26/2016 Fructosamine 202 mcmol/L 200 - 285 19 finding Laboratory test 07/20/2016 Erythrocyte Sed Rate 41 mm/Hr High 0-40 20 finding CBC Auto Diff 07/20/2016 White Blood Count 11.2 10^3/uL High 3.5-10.8 Red Blood Count 4.10 10^6/uL 4.0-5.4 Hemoglobin 11.8 g/dL Low 12.0-16.0 Hematocrit 37 % 35-47 Mean Corpuscular Volume 89 fL 80-97 Mean Corpuscular Hemoglobin 29 pg 27-31 Mean Corpuscular HGB Conc 32 g/dL 31-36 Red Cell Distribution Width 20 % High 10.5-15 Platelet Count 370 10^3/uL 150-450 Mean Platelet Volume 8 um3 7.4-10.4 Abs Neutrophils 9.7 10^3/uL High 1.5-7.7 Abs Lymphocytes 1.0 10^3/uL 1.0-4.8 Abs Monocytes 0.2 10^3/uL 0-0.8 Abs Eosinophils 0.2 10^3/uL 0-0.6 Abs Basophils 0.1 10^3/uL 0-0.2 Abs Nucleated RBC 0.01 10^3/uL Granulocyte % 86.3 % High 38-83 Lymphocyte % 9.2 % Low 25-47 Monocyte % 2.1 % 1-9 Eosinophil % 1.6 % 0-6 Basophil % 0.8 % 0-2 Nucleated Red Blood Cells % 0.1 Laboratory test finding 07/20/2016 C Reactive Protein 19.72 mg/L High &lt ; 5.00 21 Comp Metabolic Panel 07/20/2016 Sodium 137 mmol/L 133-145 Potassium 4.2 mmol/L 3.5-5.0 Chloride 105 mmol/L 101-111 Co2 Carbon Dioxide 24 mmol/L 22-32 Anion Gap 8 mmol/L 2-11 Glucose 141 mg/dL High 70-100 Blood Urea Nitrogen 32 mg/dL High 6-24 Creatinine 0.95 mg/dL 0.51-0.95 BUN/Creatinine Ratio 33.7 High 8-20 Calcium 9.4 mg/dL 8.6-10.3 Total Protein 6.0 g/dL Low 6.4-8.9 Albumin 3.9 g/dL 3.2-5.2 Globulin 2.1 g/dL 2-4 Albumin/Globulin Ratio 1.9 1-3 Total Bilirubin 0.30 mg/dL 0.2-1.0 Alkaline Phosphatase 54 U/L 34-104 Alt 11 U/L 7-52 Ast 13 U/L 13-39 Egfr Non- 58.9 >60 Egfr 75.7 >60 22 Basic Metabolic Panel 06/30/2016 Sodium 136 mmol/L 133-145 Potassium 4.4 mmol/L 3.5-5.0 Chloride 101 mmol/L 101-111 Co2 Carbon Dioxide 28 mmol/L 22-32 Anion Gap 7 mmol/L 2-11 Glucose 192 mg/dL High 70-100 Blood Urea Nitrogen 24 mg/dL 6-24 Creatinine 0.97 mg/dL High 0.51-0.95 BUN/Creatinine Ratio 24.7 High 8-20 Calcium 9.3 mg/dL 8.6-10.3 Egfr Non- 57.5 >60 Egfr 73.9 >60 23 Laboratory test finding 06/30/2016 Fructosamine 206 mcmol/L 200 - 285 24 Laboratory test finding 06/16/2016 Hemoglobin A1c 6.6 Laboratory test finding 12/24/2015 Hemoglobin A1c 5.6 Urine Micro Inhouse 11/04/2015 Ua WBC 0-2 25 Ua RBC 0-1 25 Ua Casts - 25 Ua Epi 2-4 25 Ua Other - 25 Ua Glucose - 25 Ua Bilirubin - 25 Ua Ketones - 25 Ua Specific [place] 1.030 25 Ua Blood - 25 Ua PH 5.0 25 Ua Protein - 25 Ua Urobilinogen - 25 Ua Nitrite - 25 Ua Leukocytes - 25 Occult Blood,Triple 11/03/2015 Misc negative x3 Comp Metabolic Panel 11/03/2015 Sodium 144 mmol/L 133-145 Potassium 4.4 mmol/L 3.5-5.0 Chloride 108 mmol/L 101-111 Co2 Carbon Dioxide 25 mmol/L 22-32 Anion Gap 11 mmol/L 2-11 Glucose 110 mg/dL High 70-100 Blood Urea Nitrogen 23 mg/dL 6-24 Creatinine 1.11 mg/dL High 0.51-0.95 BUN/Creatinine Ratio 20.7 High 8-20 Calcium 9.7 mg/dL 8.6-10.3 Total Protein 6.0 g/dL Low 6.4-8.9 Albumin 4.0 g/dL 3.2-5.2 Globulin 2.0 g/dL 2-4 Albumin/Globulin Ratio 2.0 1-3 Total Bilirubin 0.40 mg/dL 0.2-1.0 Alkaline Phosphatase 55 U/L 34-104 Alt 20 U/L 7-52 Ast 25 U/L 13-39 Egfr Non- 49.2 >60 Egfr 63.2 >60 26 Laboratory test finding 11/03/2015 C Reactive Protein 5.12 mg/L High < 5.00 27 Free T4 (Free Thyroxine) 0.83 ng/dL 0.61-1.12 Vitamin B12 393 pg/mL 180-914 28 Vitamin D Total 25(Oh) 28.0 ng/mL Low 30-50 CBC Auto Diff 11/03/2015 White Blood Count 4.8 10^3/uL 3.5-10.8 Red Blood Count 4.73 10^6/uL 4.0-5.4 Hemoglobin 13.9 g/dL 12.0-16.0 Hematocrit 42 % 35-47 Mean Corpuscular Volume 90 fL 80-97 Mean Corpuscular Hemoglobin 30 pg 27-31 Mean Corpuscular HGB Conc 33 g/dL 31-36 Red Cell Distribution Width 14 % 10.5-15 Platelet Count 322 10^3/uL 150-450 Mean Platelet Volume 9 um3 7.4-10.4 Abs Neutrophils 1.9 10^3/uL 1.5-7.7 Abs Lymphocytes 2.0 10^3/uL 1.0-4.8 Abs Monocytes 0.4 10^3/uL 0-0.8 Abs Eosinophils 0.4 10^3/uL 0-0.6 Abs Basophils 0.1 10^3/uL 0-0.2 Abs Nucleated RBC 0 10^3/uL Granulocyte % 40.2 % 38-83 Lymphocyte % 41.6 % 25-47 Monocyte % 9.2 % High 1-9 Eosinophil % 7.5 % High 0-6 Basophil % 1.5 % 0-2 Nucleated Red Blood Cells % 0.1 Laboratory test finding 11/03/2015 Erythrocyte Sed Rate 20 mm/Hr 0-40 Lyme Disease Serology Negative Negative 29 Vitamin D, 1,25 Dihydroxy 46 pg/mL 18-78 30 Laboratory test finding 09/15/2015 Hemoglobin A1c 7.1 Comp Metabolic Panel 09/09/2015 Sodium 140 mmol/L 133-145 Potassium 4.1 mmol/L 3.5-5.0 Chloride 108 mmol/L 101-111 Co2 Carbon Dioxide 23 mmol/L 22-32 Anion Gap 9 mmol/L 2-11 Glucose 123 mg/dL High 70-100 Blood Urea Nitrogen 15 mg/dL 6-24 Creatinine 0.99 mg/dL High 0.51-0.95 BUN/Creatinine Ratio 15.2 8-20 Calcium 9.4 mg/dL 8.6-10.3 Total Protein 6.2 g/dL Low 6.4-8.9 Albumin 4.0 g/dL 3.2-5.2 Globulin 2.2 g/dL 2-4 Albumin/Globulin Ratio 1.8 1-3 Total Bilirubin 0.40 mg/dL 0.2-1.0 Alkaline Phosphatase 63 U/L 34-104 Alt 24 U/L 7-52 Ast 25 U/L 13-39 Egfr Non- 56.3 >60 Egfr 72.4 >60 31 Laboratory test finding 09/09/2015 C Reactive Protein 7.88 mg/L High < 5.00 32 CBC Auto Diff 09/09/2015 White Blood Count 5.2 10^3/uL 3.5-10.8 Red Blood Count 4.32 10^6/uL 4.0-5.4 Hemoglobin 13.2 g/dL 12.0-16.0 Hematocrit 41 % 35-47 Mean Corpuscular Volume 95 fL 80-97 Mean Corpuscular Hemoglobin 31 pg 27-31 Mean Corpuscular HGB Conc 32 g/dL 31-36 Red Cell Distribution Width 14 % 10.5-15 Platelet Count 328 10^3/uL 150-450 Mean Platelet Volume 8 um3 7.4-10.4 Abs Neutrophils 2.6 10^3/uL 1.5-7.7 Abs Lymphocytes 1.8 10^3/uL 1.0-4.8 Abs Monocytes 0.3 10^3/uL 0-0.8 Abs Eosinophils 0.4 10^3/uL 0-0.6 Abs Basophils 0.1 10^3/uL 0-0.2 Abs Nucleated RBC 0 10^3/uL Granulocyte % 49.5 % 38-83 Lymphocyte % 35.1 % 25-47 Monocyte % 6.6 % 1-9 Eosinophil % 7.6 % High 0-6 Basophil % 1.2 % 0-2 Nucleated Red Blood Cells % 0 Laboratory test finding 09/09/2015 Erythrocyte Sed Rate 25 mm/Hr 0-40 Comp Metabolic Panel 06/09/2015 Sodium 139 mmol/L 133-145 Potassium 3.8 mmol/L 3.5-5.0 Chloride 106 mmol/L 101-111 Co2 Carbon Dioxide 24 mmol/L 22-32 Anion Gap 9 mmol/L 2-11 Glucose 215 mg/dL High 70-100 Blood Urea Nitrogen 24 mg/dL 6-24 Creatinine 0.94 mg/dL 0.51-0.95 BUN/Creatinine Ratio 25.5 High 8-20 Calcium 9.3 mg/dL 8.6-10.3 Total Protein 5.9 g/dL Low 6.4-8.9 Albumin 3.8 g/dL 3.2-5.2 Globulin 2.1 g/dL 2-4 Albumin/Globulin Ratio 1.8 1-3 Total Bilirubin 0.40 mg/dL 0.2-1.0 Alkaline Phosphatase 43 U/L 34-104 Alt 24 U/L 7-52 Ast 12 U/L Low 13-39 Egfr Non- 59.8 >60 Egfr 76.9 >60 33 Laboratory test finding 06/09/2015 C Reactive Protein 5.86 mg/L High < 5.00 34 CBC Auto Diff 06/09/2015 White Blood Count 9.6 10^3/uL 3.5-10.8 Red Blood Count 4.35 10^6/uL 4.0-5.4 Hemoglobin 12.8 g/dL 12.0-16.0 Hematocrit 40 % 35-47 Mean Corpuscular Volume 92 fL 80-97 Mean Corpuscular Hemoglobin 30 pg 27-31 Mean Corpuscular HGB Conc 32 g/dL 31-36 Red Cell Distribution Width 19 % High 10.5-15 Platelet Count 325 10^3/uL 150-450 Mean Platelet Volume 8 um3 7.4-10.4 Abs Neutrophils 5.9 10^3/uL 1.5-7.7 Abs Lymphocytes 3.1 10^3/uL 1.0-4.8 Abs Monocytes 0.5 10^3/uL 0-0.8 Abs Eosinophils 0 10^3/uL 0-0.6 Abs Basophils 0 10^3/uL 0-0.2 Abs Nucleated RBC 0.01 10^3/uL Granulocyte % 61.9 % 38-83 Lymphocyte % 32.1 % 25-47 Monocyte % 5.1 % 1-9 Eosinophil % 0.4 % 0-6 Basophil % 0.5 % 0-2 Nucleated Red Blood Cells % 0.1 Laboratory test finding 06/09/2015 Erythrocyte Sed Rate 20 mm/Hr 0-40 Comprehensive Metabolic Panel 06/04/2015 Glucose 140 mg/dL High 74-106 BUN 23 mg/dL High 7-18 Creatinine 1.1 mg/dL 0.6-1.3 Glom Filtration Rate, Estimate 53 mL/min >60 If >60 mL/min >60 35 BUN/Creat 20.9 ratio Sodium 141 mmol/L 136-145 Potassium 3.8 mmol/L 3.5-5.1 Chloride 102 mmol/L 98-107 Carbon Dioxide 28 mmol/L 21-32 Anion Gap 11 mEq/L 8-16 Calcium 9.4 mg/dL 8.5-10.1 Total Protein 7.1 g/dL 6.4-8.2 Albumin 3.7 g/dL 3.4-5.0 Globulin 3.4 g/dL 1.9-4.3 Alb/Glob 1.1 ratio Bilirubin,Total 0.5 mg/dL 0.2-1.0 Sgot/Ast 17 U/L 15-37 SGPT/Alt 43 U/L 12-78 Alkaline Phosphatase 63 U/L 45-117 CBC 06/04/2015 White Blood Count 12.2 K/uL High 3.1-10.7 Red Blood Count 4.63 M/uL 3.90-5.40 Hemoglobin 13.8 gm/dL 11.6-15.8 Hematocrit 42.0 % 36.0-46.1 Mean Cell Volume 90.7 fl 80.9-99.0 Mean Corpuscular HGB 29.8 pg 25.9-32.7 Mean Corpuscular HGB Conc 32.9 g/dL 30.8-34.3 Platelet Count 354 K/uL 155-360 Red Cell Distri Width %CV 18.8 % High 11.7-14.4 Mean Platelet Volume 9.7 fL 8.9-12.4 Laboratory test finding 06/04/2015 Ua RFX Micro + Culture See Note 36 II Urinalysis With Microscopic 06/04/2015 Urine Color DK YELLOW Yellow Urine Clarity SL CLOUDY Clear Urine Glucose - Dipstick NEGATIVE mg/dL Negative Urine Bilirubin - Dipstick SMALL High Negative Urine Ketone NEGATIVE mg/dL Negative Urine Specific [place] >=1.030 1.010-1.030 Urine Blood LARGE High Negative Urine PH 5.0 Low 6.5-7.5 Urine Protein - Dipstick 100 mg/dL High Negative Urine Urobilinogen - Dipstick 0.2 E.U./dL 0.2-1.0 Urine Nitrite - Dipstick NEGATIVE Negative Urine Leuk Esterase NEGATIVE Negative Urine RBC TNTC rbc/hpf High 0-2 Urine WBC 5-10 wbc/hpf 0-7 Urine Epithelial Cells MODERATE NONESEEN/lpf 37 Urine Bacteria FEW NONESEEN Laboratory test finding 06/04/2015 Urine Culture See Note 38 Laboratory test finding 04/08/2015 C-Reactive Protein,Quant 89.2 mg/L High <3.0 D-Dimer, Quantitative 5.71 ug/mL High 39 Culture Urine Inhouse 04/07/2015 Colonies no growth 25 Urine Micro Inhouse 04/07/2015 Ua WBC 0-1 25 Ua RBC 0-2 25 Ua Casts - 25 Ua Epi 0-2 25 Ua Other - 25 Ua Glucose - 25 Ua Bilirubin - 25 Ua Ketones - 25 Ua Specific [place] 1.030 25 Ua Blood sm 25 Ua PH 5.0 25 Ua Protein - 25 Ua Urobilinogen - 25 Ua Nitrite - 25 Ua Leukocytes - 25 Arthritis Panel 03/13/2015 Uric Acid 3.3 mg/dL 2.3-6.6 [place] (Anti-Nuclear AB) Screen Negative Negative CBC Auto Diff 03/13/2015 White Blood Count 7.6 10^3/uL 4.8-10.8 Red Blood Count 4.33 10^6/uL 4.0-5.4 Hemoglobin 13.3 g/dL 12.0-16.0 Hematocrit 39 % 35-47 Mean Corpuscular Volume 91 fL 80-97 Mean Corpuscular Hemoglobin 31 pg 27-31 Mean Corpuscular HGB Conc 34 g/dL 31-36 Red Cell Distribution Width 15 % 10.5-15 Platelet Count 295 10^3/uL 150-450 Mean Platelet Volume 8 um3 7.4-10.4 Abs Neutrophils 5.8 10^3/uL 1.5-7.7 Abs Lymphocytes 0.8 10^3/uL Low 1.0-4.8 Abs Monocytes 0.4 10^3/uL 0-0.8 Abs Eosinophils 0.5 10^3/uL 0-0.6 Abs Basophils 0 10^3/uL 0-0.2 Abs Nucleated RBC 0.01 10^3/uL Granulocyte % 76.8 % 38-83 Lymphocyte % 10.3 % Low 25-47 Monocyte % 5.7 % 1-9 Eosinophil % 6.8 % High 0-6 Basophil % 0.4 % 0-2 Nucleated Red Blood Cells % 0.1 Comp Metabolic Panel 03/13/2015 Sodium 139 mmol/L 133-145 Potassium 3.9 mmol/L 3.5-5.0 Chloride 105 mmol/L 101-111 Co2 Carbon Dioxide 22 mmol/L 22-32 Anion Gap 12 mmol/L High 2-11 Glucose 85 mg/dL 70-100 Blood Urea Nitrogen 16 mg/dL 6-24 Creatinine 1.03 mg/dL High 0.51-0.95 BUN/Creatinine Ratio 15.5 8-20 Calcium 8.8 mg/dL 8.6-10.3 Total Protein 6.1 g/dL Low 6.4-8.9 Albumin 3.5 g/dL 3.2-5.2 Globulin 2.6 g/dL 2-4 Albumin/Globulin Ratio 1.3 1-3 Total Bilirubin 0.40 mg/dL 0.2-1.0 Alkaline Phosphatase 140 U/L High 34-104 Alt 29 U/L 7-52 Ast 25 U/L 13-39 Egfr Non- 53.8 >60 Egfr 69.2 >60 40 Laboratory test finding 03/13/2015 Creatine Kinase(CK) 74 U/L 10-223 C Reactive Protein 155.57 mg/L High < 5.00 41 Cyclic Citrullinated Pep Igg <15.6 U 42 Erythrocyte Sed Rate 79 mm/Hr High 0-40 Rheumatoid Factor <15 IU/mL <15 43 TSH (Thyroid Stim Horm) 2.15 ?IU/mL 0.34-5.60 Vitamin B12 386 pg/mL 180-914 44 Vitamin D Total 25(Oh) 16.8 ng/mL Low 30-50 Magnesium 2.0 mg/dL 1.9-2.7 Parvovirus B19 Igg & 03/13/2015 Parvovirus (B19) IgG 3.23 index < 0.90 45 Igm Antibody Parvovirus (B19) IgM Antibody 0.13 index <0.90 46 Parvovirus Interpretation See Comment 47 Hla B27 03/13/2015 Hla B27 Negative 48 Hla B27 Interp See Comment 49 Lyme Western Blot 03/13/2015 Lyme Disease IgG Ab WB Negative Negative Lyme Disease IgG Bands Present p41, kDa Lyme Disease IgM Ab WB Negative Negative Lyme Disease IgM Bands Present No bands detecte <SEE NOTE> kDa 50 Lyme Disease Interpretation See Comment 51 Laboratory test 03/13/2015 Babesia microti PCR See Comment 52 finding Ehrlichia/Anaplasma 03/13/2015 Anaplasma phagocytophilum Negative Negative PCR Ehrlichia chaffeensis Negative Negative Ehrlichia ewingii/canis Negative Negative Ehrlichia muris-like Negative Negative 53 Laboratory test finding 10/03/2013 Hepatitis C Antibody Nonreactive Nonreactive Lipid Profile 10/03/2013 Triglycerides 158 mg/dL 54 (Trig/Chol/HDL) Cholesterol 178 mg/dL 55 HDL Cholesterol 43.0 mg/dL 56 LDL Cholesterol 103 mg/dL 57 Quantiferon Gold TB 10/03/2013 M tuberculosis by Quantiferon Negative Negative Tuberculosis Antigen Value 0.27 IU/mL 58 Comprehensive Metabolic Panel 07/25/2010 Glucose 100 mg/dL 76-115 BUN 21 mg/dL 5-23 Creatinine 1.2 mg/dL 0.5-1.4 Glom Filtration Rate, Estimate 49 mL/min >60 If 59 mL/min >60 59 BUN/Creat 17.5 Sodium 140 mEq/L 136-145 Potassium 4.1 mEq/L 3.5-5.1 Chloride 106 mEq/L 98-107 Carbon Dioxide 28 mEq/L 21-32 Anion Gap 10 mEq/L 8-16 Calcium 9.0 mg/dL 8.5-10.1 Total Protein 7.5 g/dL 6.3-8.0 Albumin 4.1 g/dL 3.5-5.0 Globulin 3.4 gm/dL 1.9-4.3 Alb/Glob 1.2 Bilirubin,Total 0.4 mg/dL 0.2-1.2 Sgot/Ast 22 U/L 16-40 SGPT/Alt 42 U/L 30-65 Alkaline Phosphatase 102 U/L 50-136 LDL Cholesterol Profile 07/25/2010 Cholesterol 201 mg/dL High 120-200 Triglycerides 93 mg/dL 0-210 HDL Cholesterol 53 mg/dL 32-96 LDL-Cholesterol 129 mg/dL 62-185 CBS W/Automated Diff 07/25/2010 White Blood Count 4.3 K/uL 3.1-10.7 Red Blood Count 4.43 M/uL 3.90-5.40 Hemoglobin 13.5 gm/dL 11.6-15.8 Hematocrit 41.2 % 36.0-46.1 Mean Cell Volume 93.0 fl 80.9-99.0 Mean Corpuscular HGB 30.5 pg 25.9-32.7 Mean Corpuscular HGB Conc 32.8 g/dL 30.8-34.3 Platelet Count 330 K/uL 155-360 Red Cell Distri Width %CV 14.1 % 11.7-14.4 Mean Platelet Volume 9.7 fL 8.9-12.4 Neut% 44.3 % 40.4-72.8 Lymph % 40.5 % 17.0-46.1 [place] % 8.2 % 4.3-13.2 Eo% 5.4 % 0.0-6.6 Bas% 1.6 % High 0.0-1.1 Neut# 1.89 K/uL 1.0-7.0 Lymph # 1.73 K/uL 0.8-3.4 [place] # 0.35 K/uL 0.3-0.9 Eos # 0.23 K/uL 0.0-0.5 Baso # 0.07 K/uL 0.0-0.1 Red Cell Distri Width SD 47.2 fl High 3-47 Laboratory test 07/25/2010 Thyroid Stim Hormone 1.52 uIU/mL 0.49-4.67 60 finding Laboratory test 07/03/2010 Surgical Pathology 61 finding <SEE NOTE> Xray 09/27/2007 X-Ray, Hips, Normal Bilateral, Min. Of 2 Veiw Lipid Profile 03/01/2007 Cholesterol/HDL 3.58 AVERAGE 1-4.44 (Trig/Chol/HDL) Ratio Cholesterol 190 mg/dL Less Than 200 62 Triglyceride 69 mg/dL 40-200 High Density Lipoprotein 53 mg/dL 40-60 Low Density Lipoprotein 123 mg/dL High Less Than 100 63 Laboratory test finding 03/01/2007 TSH 1.20 MIU/ML 0.34-5.60 CBC With Electronic Diff 03/01/2007 White Blood Count 4.4 CUMM Low 4.8- 10.8 Abs Basophils 0 0-0.2 Abs Eosinophils 0.2 0-0.6 Absolute Neutrophil Count 2.2 1.5-7.7 Abs Lymphs 1.6 1.0-4.8 Abs Mononuclear 0.4 0-0.8 Basophil % 0.7 % 0-2 Hematocrit 38 % 35-47 Hemoglobin 12.9 g/dL 12.0-16.0 Eosinophil % 4.1 % 0-6 Gran % 49.5 % 38-83 Lymph % 36.7 % 20-45 Mean Corpuscular HGB Cone 34 g/dL 32-36 Mean Corpuscular Hemoglob 32 pg High 27-31 Mean Corpuscular Volume 92 um3 79-97 Mean Platelet Volume 8.1 um3 7.4-10.4 Mononuclear % 9.0 % 1-9 Platelet Count 362 CUMM 150-450 Red Cell Count 4.12 CUMM Low 4.2-5.4 Redcell Distribution WDTH 14 % 10.5-15 Comp Metabolic Panel 03/01/2007 One Over Creatinine 0.83 Anion Gap 3.0 mmol/L 2-11 64 Albumin/Globulin Ratio 1.2 1-3 Albumin 3.8 GM/DL 3.6-5.4 Alkaline Phosphatase 76 U/L 30-110 Alt (SGPT) 19 U/L 14-54 Ast (Sgot) 25 U/L 12-42 BUN 20 mg/dL 6-24 Calcium 9.4 mg/dL 8.7-10.2 Chloride 111 mmol/L 101-111 Co2 (Carbon Dioxide) 26.0 mmol/L 22-32 Globulin 3.1 GM/DL 2-4 Glucose 92 mg/dL 70-105 Potassium 4.6 mmol/L 3.5-5.0 Sodium 140 mmol/L 135-145 Bilirubin Total 0.5 mg/dL 0.4-1.5 Total Protein 6.9 GM/DL 6.2-8.1 BUN/Creatinine Ratio 16.7 8-20 Creatinine 1.2 mg/dL 0.5-1.4 1 Therapeutic target for the treatment of diabetes mellitus patients is <7% HBA1C, and in selective patients <6.0%. Please refer to [place] [employer] diabetic care guidelines for further information. 2 Because ethnic data is not always readily available, this report includes an eGFR for both -Americans and non- Americans. The National Kidney Disease Education Program (NKDEP) does not endorse the use of the MDRD equation for patients that are not between the ages of 18 and 70, are , have extremes of body size, muscle mass, or nutritional status, or are non- or non-. According to the National Kidney Foundation, irrespective of diagnosis, the stage of the disease is based on the level of kidney function: Stage Description GFR(mL/min/1.73 m(2)) 1 Kidney damage with normal or decreased GFR 90 2 Kidney damage with mild decrease in GFR 60-89 3 Moderate decrease in GFR 30-59 4 Severe decrease in GFR 15-29 5 Kidney failure <15 (or dialysis) 3 Acute inflammation: >10.00 4 Please schedule today 5 void, clear, light yellow 6 Please check labs 2 days before follow up 7 Please check labs 2 days before follow up 8 Acute inflammation: >10.00 9 Because ethnic data is not always readily available, this report includes an eGFR for both -Americans and non- Americans. The National Kidney Disease Education Program (NKDEP) does not endorse the use of the MDRD equation for patients that are not between the ages of 18 and 70, are , have extremes of body size, muscle mass, or nutritional status, or are non- or non-. According to the National Kidney Foundation, irrespective of diagnosis, the stage of the disease is based on the level of kidney function: Stage Description GFR(mL/min/1.73 m(2)) 1 Kidney damage with normal or decreased GFR 90 2 Kidney damage with mild decrease in GFR 60-89 3 Moderate decrease in GFR 30-59 4 Severe decrease in GFR 15-29 5 Kidney failure <15 (or dialysis) 10 [id number] 11 URINE, CLEAN CATCH 12 THERAPEUTIC INR RANGE: 2.0 - 3.0 DVT, Pulmonary embolus, prophylaxis against venous thrombosis or systemic embolization in high risk patients. 2.5 - 3.5 Mechanical heart valves 13 10,000 - 50,000 CFU/mL 14 Please check labs 2 days before follow 15 Acute inflammation: >10.00 16 Because ethnic data is not always readily available, this report includes an eGFR for both -Americans and non- Americans. The National Kidney Disease Education Program (NKDEP) does not endorse the use of the MDRD equation for patients that are not between the ages of 18 and 70, are , have extremes of body size, muscle mass, or nutritional status, or are non- or non-. According to the National Kidney Foundation, irrespective of diagnosis, the stage of the disease is based on the level of kidney function: Stage Description GFR(mL/min/1.73 m(2)) 1 Kidney damage with normal or decreased GFR 90 2 Kidney damage with mild decrease in GFR 60-89 3 Moderate decrease in GFR 30-59 4 Severe decrease in GFR 15-29 5 Kidney failure <15 (or dialysis) 17 Booking Supervisor: [id number] 18 Because ethnic data is not always readily available, this report includes an eGFR for both -Americans and non- Americans. The National Kidney Disease Education Program (NKDEP) does not endorse the use of the MDRD equation for patients that are not between the ages of 18 and 70, are , have extremes of body size, muscle mass, or nutritional status, or are non- or non-. According to the [employer], irrespective of diagnosis, the stage of the disease is based on the level of kidney function: Stage Description GFR(mL/min/1.73 m(2)) 1 Kidney damage with normal or decreased GFR 90 2 Kidney damage with mild decrease in GFR 60-89 3 Moderate decrease in GFR 30-59 4 Severe decrease in GFR 15-29 5 Kidney failure <15 (or dialysis) 19 Test Performed by: [place] [id number] 20 Please check 2 days before her next visit 21 Acute inflammation: >10.00 22 Because ethnic data is not always readily available, this report includes an eGFR for both -Americans and non- Americans. The National Kidney Disease Education Program (NKDEP) does not endorse the use of the MDRD equation for patients that are not between the ages of 18 and 70, are , have extremes of body size, muscle mass, or nutritional status, or are non- or non-. According to the [employer], irrespective of diagnosis, the stage of the disease is based on the level of kidney function: Stage Description GFR(mL/min/1.73 m(2)) 1 Kidney damage with normal or decreased GFR 90 2 Kidney damage with mild decrease in GFR 60-89 3 Moderate decrease in GFR 30-59 4 Severe decrease in GFR 15-29 5 Kidney failure <15 (or dialysis) 23 Because ethnic data is not always readily available, this report includes an eGFR for both -Americans and non- Americans. The National Kidney Disease Education Program (NKDEP) does not endorse the use of the MDRD equation for patients that are not between the ages of 18 and 70, are , have extremes of body size, muscle mass, or nutritional status, or are non- or non-. According to the [employer], irrespective of diagnosis, the stage of the disease is based on the level of kidney function: Stage Description GFR(mL/min/1.73 m(2)) 1 Kidney damage with normal or decreased GFR 90 2 Kidney damage with mild decrease in GFR 60-89 3 Moderate decrease in GFR 30-59 4 Severe decrease in GFR 15-29 5 Kidney failure <15 (or dialysis) 24 Test Performed by: [address] [address] 25 void, clear, yellow 26 Because ethnic data is not always readily available, this report includes an eGFR for both -Americans and non- Americans. The National Kidney Disease Education Program (NKDEP) does not endorse the use of the MDRD equation for patients that are not between the ages of 18 and 70, are , have extremes of body size, muscle mass, or nutritional status, or are non- or non-. According to the National [employer], irrespective of diagnosis, the stage of the disease is based on the level of kidney function: Stage Description GFR(mL/min/1.73 m(2)) 1 Kidney damage with normal or decreased GFR 90 2 Kidney damage with mild decrease in GFR 60-89 3 Moderate decrease in GFR 30-59 4 Severe decrease in GFR 15-29 5 Kidney failure <15 (or dialysis) 27 Acute inflammation: >10.00 28 Normal Range 180 to 914 Indeterminate Range 145 to 180 Deficient Range <145 29 Serologic response to B. burgdorferi infection is not detected, but cannot rule out early infection during which low or undetectable antibody levels to B. burgdorferi may be present. If clinically indicated, a new serum specimen should be submitted in 7-14 days. Test Performed by: [facility] [place] [address] Senior Electronics Design Engineer: Олег Albert II, M.D., Ph.D. 30 Test Performed by: [facility] [place] [address] Senior Electronics Design Engineer: Олег Albert II, M.D., Ph.D. 31 Because ethnic data is not always readily available, this report includes an eGFR for both -Americans and non- Americans. The National Kidney Disease Education Program (NKDEP) does not endorse the use of the MDRD equation for patients that are not between the ages of 18 and 70, are , have extremes of body size, muscle mass, or nutritional status, or are non- or non-. According to the National [employer], irrespective of diagnosis, the stage of the disease is based on the level of kidney function: Stage Description GFR(mL/min/1.73 m(2)) 1 Kidney damage with normal or decreased GFR 90 2 Kidney damage with mild decrease in GFR 60-89 3 Moderate decrease in GFR 30-59 4 Severe decrease in GFR 15-29 5 Kidney failure <15 (or dialysis) 32 Acute inflammation: >10.00 33 Because ethnic data is not always readily available, this report includes an eGFR for both -Americans and non- Americans. The National Kidney Disease Education Program (NKDEP) does not endorse the use of the MDRD equation for patients that are not between the ages of 18 and 70, are , have extremes of body size, muscle mass, or nutritional status, or are non- or non-. According to the National [employer], irrespective of diagnosis, the stage of the disease is based on the level of kidney function: Stage Description GFR(mL/min/1.73 m(2)) 1 Kidney damage with normal or decreased GFR 90 2 Kidney damage with mild decrease in GFR 60-89 3 Moderate decrease in GFR 30-59 4 Severe decrease in GFR 15-29 5 Kidney failure <15 (or dialysis) 34 Acute inflammation: >10.00 35 Note: Persistent reduction for 3 months or more in an eGFR <60 mL/min/1.73 m2 defines CKD. Patients with eGFR values >/=60 mL/min/1.73 m2 may also have CKD if evidence of persistent proteinuria is present. The original MDRD equation for estimated GFR is not valid for patients less than 18 years of age. Additional information may be found at www.kdoqi.org. 36 06/04/15 LAB.TOW Deleted by [facility] 37 POSSIBLE UROGENITAL CONTAMINATION. 38 Organism 1 ! MIXED URETHRAL MILEY Quantity ! > 100,000 CFU/mL SPECIMEN IS A MIX OF GRAM NEGATIVE AND GRAM POSITIVE ORGANISMS. UNABLE TO DETERMINE WHICH ORGANISMS ARE FROM THE URINARY TRACT OR THE RESULT OF SKIN/VAGINAL/PERIANAL CONTAMINATION DURING COLLECTION. SUGGEST REPEAT SPECIMEN IF CLINICALLY INDICATED. 39 <=0.49 ug/mL - Low likelihood of DIC, DVT or Pulmonary Embolism >0.49 ug/mL - Additional testing should be done to rule out DIC, DVT, or Pulmonary embolism as clinically indicated. ([facility] has established a 97.89% negative predictive value for thrombotic disease when a cutoff value of 0.5 ug/mL is used.) 40 Because ethnic data is not always readily available, this report includes an eGFR for both -Americans and non- Americans. The National Kidney Disease Education Program (NKDEP) does not endorse the use of the MDRD equation for patients that are not between the ages of 18 and 70, are , have extremes of body size, muscle mass, or nutritional status, or are non- or non-. According to the National Kid[employer] Foundation, irrespective of diagnosis, the stage of the disease is based on the level of kidney function: Stage Description GFR(mL/min/1.73 m(2)) 1 Kidney damage with normal or decreased GFR 90 2 Kidney damage with mild decrease in GFR 60-89 3 Moderate decrease in GFR 30-59 4 Severe decrease in GFR 15-29 5 Kidney failure <15 (or dialysis) 41 Acute inflammation: >10.00 42 REFERENCE VALUE <20.0 (Negative) Test Performed by: [place] [address] Senior Electronics Design Engineer: Олег Albert II, M.D., Ph.D. 43 Test Performed by: [place] [address] Senior Electronics Design Engineer: Олег Albert II, M.D., Ph.D. 44 Normal Range 180 to 914 Indeterminate Range 145 to 180 Deficient Range <145 45 Positive 46 Negative 47 RESULT: Results suggest past infection. Test Performed by: [place] [address] Senior Electronics Design Engineer: Олег Albert II, M.D., Ph.D. 48 REFERENCE VALUE Not Applicable 49 RESULT: HLA-B27 antigen was not detected. ADDITIONAL INFORMATION Method: Flow Cytometry Performing Laboratory CLIA# [id number] Test Performed by: [place] [address] Senior Electronics Design Engineer: Олег Albert II, M.D., Ph.D. 50 No bands detected 51 Specific serologic response to B. burgdorferi infection is not detected, but cannot rule out early infection during which low or undetectable antibody levels to B. burgdorferi may be present. If clinically indicated, a new serum specimen should be submitted in 7-14 days. ADDITIONAL INFORMATION CDC criteria require >=5 bands for IgG or >=2 bands for IgM for the Immunoblot to be considered positive. Bands (e.g.,p41) may be detected in patients without Lyme disease, and patterns not meeting the CDC criteria should be interpreted with caution. Immunoblot should be ordered only on specimens that are positive or equivocal by a FDA-licensed Lyme disease antibody screening test (e.g., EIA). Test Performed by: [facility] [place] [address] Senior Electronics Design Engineer: Олег Albert II, M.D., Ph.D. 52 Test Result Flag Unit RefValue Babesia species, PCR, B Babesia microti Negative Negative Babesia duncani Negative Negative Babesia divergens/MO-1 Negative Negative ADDITIONAL INFORMATION Laboratory developed test. Test Performed by: [facility] [place] [address] Senior Electronics Design Engineer: Олег Albert II, M.D., Ph.D. 53 ADDITIONAL INFORMATION Laboratory developed test. Test Performed by: [facility] [place] [address] Senior Electronics Design Engineer: Олег Albert II, M.D., Ph.D. 54 Desirable <150 Borderline high 150-199 High 200-499 Very High >500 55 Desirable <200 Borderline high 200-239 High >239 56 Low <40 Desirable: 40-60 High: >60 57 Desirable <100 Near Optimal 100-129 Borderline high 130-159 High 160-189 Very High >189 58 This is a qualitative test. The TB antigen IU/mL value is required for documentation on certain government reporting forms (e.g., Form I-693), but this value should not be used to monitor disease progression or response to therapy. Diagnosing or excluding tuberculosis disease, and assessing the probability of LTBI, require a combination of epidemiological, historical, medical, and diagnostic findings that should be taken into account when interpreting QuantiFERON-TB results. Test Performed by: [facility] [address] [address] Senior Electronics Design Engineer: Durga Bell III, M.D. 59 Note: Persistent reduction for 3 months or more in an eGFR <60 mL/min/1.73 m2 defines CKD. Patients with eGFR values >/=60 mL/min/1.73 m2 may also have CKD if evidence of persistent proteinuria is present. The original MDRD equation for estimated GFR is not valid for patients less than 18 years of age. Additional information may be found at www.kdoqi.org. 60 QUERY: @[facility] ID: [id number] QUERY: @[facility] Req #: [id number] 61 ---- RUN DATE: 07/08/10 [facility] NMI LIVE PAGE 1 RUN TIME: 1622 Specimen Inquiry RUN USER: INTERFACE -- Name: JAMAAL MAGANAHLEEN Eliot Status: REG REF Re07/03/10 Age/Sex: 59/F Unit#: [id number] Location: [facility] : 48 -- Specimen: [id number] SOUT Spec Date: 07/03/10 [facility] Dr: Urban merritt MD Spec Type: SURGICAL P Received: 07/07/10-1411 Copies to: SPECIMEN 3-4 MM. ROUNDED PAPULONODULE LESION HISTORY CLINICAL INFORMATION: On the upper back, near her neck, has not changed, present at least four months. A 4 mm. punch biopsy needle was used to remove the lesion; mildly erythematous and blanches with pressure GROSS DESCRIPTION The specimen is received in formalin labelled Jane Magana and consists of a punch skin specimen measuring 0.4 x 0.4 x 0.4 cm. with a white, slightly hyperkeratotic skin. Submitted entirely as it is in one cassette. DIAGNOSIS Skin, upper back, punch biopsy: Lichen planus-like keratosis. Signed Electronically by: ROSEANNA SMITH 07/08/10 1622 -- -- DEPARTMENT OF PATHOLOGY, [address] [place] [address] [facility] Permit #[id number] Joni Red M.D. Director Roseanna Smith M.D. Thoracic Medicine Physician Dir jamilah -- 62 Classification: Desirable . 63 CALCULATED LDL APPROXIMATES THE VALUE OF A DIRECT LDL MEASUREMENT. Classification: Near or above optimal . 64 Anion gap measurement may be of limited value in the presence of any alkalosis, especially in a combined acid base disorder. . Procedures Date CPT Code Description Status Comment 08/09/2017 Mammogram Completed 2018: benign; 12/10/16: pt elected to continue yearly mammos (but wants to wait until she recovers from knee surgery before getting another one; she will request getting it scheduled when she recovers from surgery) 12/10/2016 38894 Electrocardiogram Complete Completed 04/22/2015 18161 Bronchospasm Evaluation Pre Completed & Post 08/30/2011 76042 Bronchospasm Evaluation Pre Completed & Post 08/02/2011 01392 Oximetry, Single Completed 07/03/2010 05938 Biopsy Skin Lesion Single Completed 05/08/2010 24523 X-Ray Knee, Complete Completed 03/14/2009 04084 Spirometry Completed 03/14/2009 04747 Electrocardiogram Complete Completed 05/12/2005 Colonoscopy Completed normal 08/22/17: repeat scope declined, FIT provided Encounters Type Date Location Provider CPT E/M Dx Office Visit 09/10/2017 10:30a Main Office Jorge Penn D.O. 95443 R21 B37.2 Office Visit 09/08/2017 10:20a Main Office Vilma Hines 87462 R21 B37.2 Office Visit 08/22/2017 1:15p Main Office Urban Tripp M.D. 55850 R31.0 M25.511 Z12.31 E11.9 R19.7 E66.9 Z12.11 Z79.84 Office Visit 05/06/2017 1:30p Main Office Urban Tripp M.D. 50657 E11.65 M35.3 M06.00 E66.9 Office Visit 03/19/2017 9:30a Main Office Urban Tripp M.D. 87113 R91.1 R19.7 R15.2 E66.9 Office Visit 12/10/2016 3:30p Main Office Urban Tripp M.D. 83676 Z01.818 M17.0 M35.3 F41.1 E66.9 B37.2 E11.65 Office Visit 09/21/2016 1:30p Main Office Urban Tripp M.D. 94849 E11.65 M35.3 M17.0 M06.00 F41.1 Office Visit 06/29/2016 4:15p Main Office Jorge Penn D.O. 59230 E11.65 Office Visit 06/16/2016 12:55p Main Office Urban Tripp M.D. 91671 M06.00 M35.3 E11.65 E66.9 Z68.32 Office Visit 04/07/2016 4:20p [place] [address] M17.0 M25.561 M35.3 Office Visit 03/19/2016 1:15p Main Office Urban Tripp M.D. 97193 M17.0 M25.561 R93.422 R91.1 E66.9 M54.5 Office Visit 12/24/2015 11:30a Main Office Urban Tripp M.D. 09556 R73.01 E66.9 M17.0 F41.1 R93.4 R91.1 Z23 Office Visit 11/03/2015 9:45a Main Office Urban Tripp M.D. 48375 R31.0 Z12.11 R10.2 Z12.31 R93.4 R91.1 Z00.01 M25.50 R73.01 E66.9 Z01.818 H26.9 Office Visit 09/15/2015 1:30p Main Office Urban Tripp M.D. 93063 R73.9 M25.50 R73.01 E66.9 Z92.241 F41.1 Office Visit 04/22/2015 1:30p Main Office Urban Tripp M.D. 43482 M25.50 E66.9 J84.114 R05 R79.82 Z68.33 Office Visit 04/14/2015 4:15p Main Office Jorge Penn D.O. 03949 M25.561 M79.641 M34.81 Office Visit 04/07/2015 3:00p Main Office Desireevictor mleticiaJorge D.O. 33583 M25.561 M79.641 E55.9 M54.2 M79.642 N39.41 R68.83 Office Visit 03/28/2015 1:45p Main Office Jorge Penn D.O. 68387 M25.50 M79.1 E55.9 R79.82 R70.0 Office Visit 03/13/2015 1:15p Main Office Jorge Penn D.O. 43930 M79.1 R21 R23.4 M25.50 Z13.0 Z13.828 Office Visit 02/18/2015 1:45p Main Office Urban Tripp M.D. 57357 E66.9 Z23 Z68.34 Z91.138 T50.5x6A Office Visit 12/09/2014 9:15a Main Office Urban Tripp M.D. 92147 278.00 V03.82 V07.2 Office Visit 08/21/2014 8:55a Main Office Urban Tripp M.D. 60819 278.00 V85.34 Office Visit 06/19/2014 8:55a Main Office Urban Tripp M.D. 91179 354.0 300.02 530.81 493.10 278.00 Office Visit 12/19/2013 11:15a Main Office Urban Tripp M.D. 52862 708.9 354.0 300.02 493.10 530.81 Office Visit 09/25/2013 10:30a Main Office Urban Tripp M.D. 81077 300.02 493.10 530.81 V77.91 V75.9 V74.1 V70.0 V70.3 708.9 Office Visit 06/26/2013 4:00p Main Office Urban Tripp M.D. 61770 278.00 300.02 493.10 Office Visit 03/19/2013 1:15p Main Office Urban Tripp M.D. 42399 706.2 278.00 Office Visit 01/09/2013 11:15a Main Office Urban Tripp M.D. 07879 278.00 300.02 338.29 346.10 V04.81 V05.8 V07.2 Office Visit 09/22/2012 1:30p Main Office Urban Tripp M.D. 16407 278.00 300.02 702.19 782.2 Office Visit 05/17/2012 4:30p Main Office Urban Tirpp M.D. 06322 278.00 300.02 346.10 493.10 782.2 Office Visit 11/16/2011 9:30a Main Office Urban Tripp M.D. 19366 786.2 278.00 782.2 719.45 493.10 300.02 346.10 Office Visit 08/30/2011 2:30p Main Office Urban Tripp M.D. 30654 493.10 786.2 327.52 Office Visit 08/02/2011 11:30a Main Office Urban Tripp M.D. 16028 493.10 493.12 Office Visit 05/17/2011 4:00p Main Office Urban Tripp M.D. 13387 300.02 346.10 493.10 477.9 V65.49 Office Visit 10/30/2010 2:45p Main Office Urban Tripp M.D. 09712 300.02 346.10 715.16 724.3 354.0 Office Visit 08/06/2010 4:20p Main Office Vilma Hines 16192 724.3 719.46 Office Visit 07/23/2010 4:00p Main Office Vilma Hines 78098 796.2 719.46 782.3 724.3 Office Visit 07/03/2010 4:00p Main Office Urban Tripp M.D. 72459 238.2 300.02 Office Visit 05/08/2010 10:45a Main Office Urban Tripp M.D. 59236 238.2 719.46 300.02 346.10 715.16 Office Visit 12/02/2009 10:30a Main Office Urban Tripp M.D. 57986 300.02 493.10 477.9 346.10 786.09 V70.0 V03.82 V06.1 V07.2 278.00 Office Visit 06/04/2009 4:00p Main Office Urban Tripp M.D. 80287 493.10 477.9 300.02 Office Visit 03/14/2009 4:15p Main Office Urban Tripp M.D. 25749 300.02 346.10 786.09 786.50 796.2 Office Visit 02/17/2009 1:15p Main Office Urban Tripp M.D. 67497 372.72 Office Visit 09/11/2008 4:30p Main Office Urban Tripp M.D. 53185 300.02 346.10 477.9 Office Visit 04/19/2008 4:45p Main Office Urban Tripp M.D. 24787 724.4 300.02 Office Visit 03/13/2008 12:55p Main Office Urban Tripp M.D. 75980 719.41 346.10 300.02 278.02 V65.49 Office Visit 09/22/2007 4:45p Main Office Urban Tripp M.D. 42116 346.10 300.02 719.46 719.45 Office Visit 03/22/2007 4:30p Main Office Urban Tripp M.D. 73927 346.10 300.02 Office Visit 09/19/2006 4:30p Main Office Urban Tripp M.D. 97291 346.10 300.02 278.02 Office Visit 04/27/2006 4:30p Main Office Urban Tripp M.D. 10049 784.0 346.10 300.02 Office Visit 01/19/2006 4:30p Main Office Urban Tripp M.D. 86716 784.0 346.10 300.02 372.14 Office Visit 10/20/2005 9:30a Main Office Urban Tripp M.D. 86466 784.0 346.10 300.02 708.8 Office Visit 07/13/2005 4:30p Main Office Urban Tripp M.D. 88780 300.02 784.0 346.10 Office Visit 04/13/2005 4:30p Main Office Urban Tripp M.D. 97085 300.02 784.0 Office Visit 03/12/2005 4:15p Main Office Urban Tripp M.D. 24321 300.02 783.1 461.9 784.0 Office Visit 12/29/2004 3:45p Main Office Urban Tripp M.D. 35838 300.02 V76.51 V77.91 Office Visit 11/24/2004 3:15p Main Office Urban Tripp M.D. 54810 300.02 Office Visit 03/25/2004 4:45p Main Office Urban Tripp M.D. 13718 461.9 723.1 Office Visit 02/05/2004 8:55a Main Office Urban Tripp M.D. 86447 461.9 Office Visit 11/22/2003 2:15p Main Office yohannes 93522 477.8 300.02 Plan of Care Future Appointment(s):10/26/2017 3:45 pm - Urban Tripp M.D. at Main [facility]209/10/2017 - Jorge Penn D.O.R21 Rash and other nonspecific skin eruptionNew Medication:Itraconazole 100 mgB37.2 Candidiasis of skin and nailNew Medication:Ciclopirox 8 %
--- OUTSIDE RECORDS SUMMARY | 2017-09-28 12:04 | XMS REPORT ---
:1950 External Reference #:[id number] Author Organization [facility] Address [address] [place] [address] Phone [phone] Care Team Providers Name Role Phone HCP given Primary Care Physician Unavailable Payers Type Date Identification Numbers Payment Provider Subscriber Medicare Primary Effective: Policy Number: [facility] Jane Magana 2014 [id number] Services PayID: [id number] [address] [place] [address] Medigap Part B Effective: Policy Number: Rachel Mccabe 2011 [id number] Ind/Ppo/Hmo/Pos Tiffany Group Number: INDEMNI [address] [address] Group Name: [id number] ADELITA Judd [id number] PayID: [id number] Problems Date Description Provider Status Onset: 11/24/2004 Generalized anxiety disorder Urban Tripp M.D. Active Onset: 06/04/2009 Intrinsic asthma without status Urban Tripp M.D. Active asthmaticus Onset: 06/04/2009 Allergic rhinitis Urban Tripp M.D. Active Onset: 03/28/2015 Vitamin D deficiency Jorge Penn D.O. Active Onset: 04/07/2015 Neck pain Jorge [...] is Employment Not currently working. 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 12 hours after meals for 2 weeks Folic Acid 08/31 Active Tablets 1mg 30tab 1 tablet by Unknown s mouth daily Metformin HCL 08/22 Active Tablets 500mg 1 by mouth E11.65 Qasim, every day Vadim Duggan PT For Right 08/22 Active evaluate and M25.511 Qasim Shoulder Pain treatUrban modalities as M.DLiborio needed, [...] E66.9 Silcoff, Tartrate bs three times a adriana Duggan 1 hour M.D. before meals; for weight loss Vitamin D 03/18 Active one po daily Clotrimazole/Bet 12/27 Active Cream 1-0.05% 45uni apply to B37.2 Silcoff, amethasone ts affected area Urban Dipropdmitry in left M.D. armpit 3 times a day as needed for rash Freestyle Lite 06/29 Active Strips 200un or E11.65 Sopchak, Test its appropriate Jorge, testing D.O. strips for patients device, test 1-4 times daily as directed Hydrocodone-Acet 04/07 Active Tablets 5-325mg 60tab 1 tablet M25.561 Silcoshaina, aminophen s every 6 hours Urban, as needed for M.D. severe pain Rogaine 03/18 Active Solution 2% apply twice daily Fish Oil 03/31 Active Capsules one po daily Hydroxyzine HCL 03/10 Active Tablets 25mg 90tab 1 by mouth Rosettecoshaina, s three times a Urban, day as [...] Active Tablets 100mg 27tab 04/12-1 at G43.009 Qasim s onset of Urban migraine; august M.D. repeat once after 2 hours if needed Calcium + D3 Active Tablets 600-200 1 po daily Unknown Actemra 0000 Active Soln 162mg/0.9 Inject 1 M06.00 Unknown Prefill ML Syringe Syringe Subcutaneousl y Every 2 Weeks Fluconazole 09/08 Hx Tablets 150mg 9tabs 2 tabs by R21 Silcoshaina mouth day Urban - yojana, then 1 M.D. 09/10 po x 7 Prednisone 09/02 Hx Tablets 10mg 30tab taper as Bernarda, s directed x 8 nidia M.D. - days 09/10 Nystatin 12/10 Hx Cream [id number] 30gm apply to B37.2 Silcoff t/GM affected area Payam Duggan (left armpit) M.D. 12/27 three times a day until clear; resume as needed [place] For Fungus 12/09 Hx Unknown Infection - 03/18 Prednisone 09/20 Hx Tablets 1mg take 6 Bernarda tablets by nidia M.D. - mouth once 08/21 daily, taper as directed (by 1mg/month) Metformin HCL 07/02 Hx Tablets 500mg 180ta 1 by mouth E11.65 Qasim, bs twice a day Payam Duggan for blood M.D. 08/22 sugar control Freestyle Lite 06/29 Hx Device 1unit or any other E11.65 Sopchak, Blood Glucose s covered Jorge, Monitoring - glucometer by D.O. System 12/09 her insurance. Prednisone 06/15 Hx Tablets 10mg 2 tablets Bernarda daily nidia M.D. - 09/20 Methotrexate 06/15 Hx Tablets 2.5mg 4 tablets by M06.00 Bernarda mouth every nidia M.D. - week; adjust 08/21 dose as directed; for Ra Prednisone 04/07 Hx Tablets 10mg as directed, Bernarda tapering down nidia M.D. - 06/15 Doxycycline 04/01 Hx Capsules 100mg 20cap 1 capsule po Unknown Hyclate s twice daily x - 10 days 04/11 PT For Back Pain 03/19 Hx evaluate and M25.561 Silcoff, And Right Knee treat, Urban Pain - instruct in M.D. 06/15 hep, modalities prn. M54.5 PT For Back Pain, 12/24/2015 - Hx M25.561 Silcoff, Radiculopathy (L 03/19/2016 Urban Foot), Bilateral Knee M.DLiborio OA PT For Bilateral Knee 10/18/2015 - Hx Silcoff, Pain 12/24/2015 Urban, M.D. Womens Multi 09/15/2015 - Hx 1 po [...] 5-325mg 60ta 1 tabletq 4 M25. Fili, vonda 06/25/2015 bs hours as 561 Jorge, needed for D.O. severe pain Vitamin D3 03/28/2015 - Hx Tablets 5000Unit 90ta 1 tab by Dilma Penn, 09/20/2016 bs mouth every 9 Jorge, day or 7 D.O. tabs once a week Methylprednisolone 03/20/2015 - Hx Tablets 4mg 150t 6mg daily M79. Fili, 09/15/2015 abs 1 Jorge, D.O. M34.81 M25.50 Methylprednisolone 03/13/2015 - Hx Tablets 4mg 21tabs 24 mg(6 M79.1 Sopvictor mk, (Kvng) 03/19/2015 tablets) on Jorge, day 1, [...] Tartrate ER 12/09/2014 24HR daily in the Urban, morning, M.D. ideally an hour before breakfast Phendimetrazine 06/19/2014 - Hx Tablets 35mg 90tabs 1 by mouth 278.00 Silcoff, Tartrate 08/21/2014 three times Urban, a day 1hr M.D. before meals; for weight loss Cetirizine HCL 09/25/2013 - Hx Tablets 10mg 1 by mouth 708.9 Silcoff, 04/22/2015 every day as Urban needed for M.D. hives PT For Suspected 07/31/2013 - Hx please 338.29 Silcoshaina, Bilateral Piriformis 09/24/2013 evaluate and Tarun Duggan M.D. instruct in hep, modalities prn Ventolin HFA 06/26/2013 - Hx Aerosol 108(9 54units Use 2 Puffs 786.09 Silcoff, 12/09/2016 0Base Every 4 Urban ) Hours as Vadim mcg/A Needed And ct Use 15 To 30 Minutes Before Exercise 493.10 PT For Suspected 01/09/2013 - Hx please 338.29 Silcoshaina, Bilateral 06/25/2013 evaluate and Vadim Duggan Piriformis [...] q4h 786.09 Silcoff, 06/26/2013 ase) prn; use Urban mcg/ac 15-30min M.D. before exercise 493.10 Alprazolam 03/14/2009 - Hx Tablets 0.5mg 20tabs 1/2-1 po q4h 300.02 Silcoff, 06/26/2013 prn for Urban anxiety Sissy.DLiborio Loratadine 09/11/2008 - Hx Tablets 10mg 1 po qd prn 477.9 Silcoff, 06/26/2013 for Urban allergies M.D. PT For Lumbar 04/19/2008 - Hx evaluate and 724.4 Silcoff, Radiculopathy 09/10/2008 Urban paniagua, (VS Ischial modalities Vadim Bursitis) Left prn, Side instruct in hep Medrol Dosepak 04/19/2008 - Hx Tablets 4mg 1Pack use as 724.4 Silcoff, 04/25/2008 directed Vadim Duggan Tramadol HCL 04/19/2008 - Hx Tablets 50mg 30tabs 1-2 po q6h 724.4 Silcoff, 09/10/2008 prn for pain Vadim Duggan PT For R 04/04/2008 - Hx evaluate and 719.41 Silcoff, Shoulder Pain 09/10/2008 Urban paniagua, instruct in Vadim Hep, modalities prn Effexor XR 09/22/2007 - [...] daily 784.0 Silcoff, 04/13/2005 as needed for jada Duggan; Vadim may repeat dose after 2 hours; maximum [...] Silcoff, 02/15/2004 10 days for Urban sinusitis Vadim Alprazolam 11/22/2003 - Hx Tablets 0.5mg 180tabs 1-2 po q4h 300.02 klepack 09/10/2008 anxiety Flonase 11/22/2003 - Hx [place] 50mcg/Sp 3units 2 sprays in 477.8 Silcoff , 09/10/2008 ray each nostril Urban once A day ClotildeDLiborio prn 477.9 Ibuprofen - Hx 200mg as needed Unknown 04/22/2015 Calcium/Vit D - Hx Tablets 750mg 1 po qd Unknown 06/26/2013 H1N1 Swine Flu - Hx Injection Silcoff, Vaccine 06/04/2009 Vadim Duggan Immunizations CPT Code Status Date Vaccine Lot # [id number] Given 12/24/2015 Pneumococcal Immunization [id number] 89150 Given 12/24/2015 Influenza Vaccine Split Virus Preservative Free Im [id number] Use 55785 Given 02/18/2015 Influenza Vaccine Split Virus Preservative Free Im [id number] Use 65170 Given 12/16/2014 Influenza Virus Vaccine, Quadrivalent, Split, Preservative Free 57301 Given 12/09/2014 Prevnar 13 [id number] 52729 Given 01/09/2013 Zostavax [id number] 06228 Given 01/09/2013 Flu, Split Virus 3Yrs [id number] 69224 Given 03/23/2010 Flu, Split Virus 3Yrs 19160 Given 12/02/2009 Pneumococcal Immunization [id number] 41355 Given 12/02/2009 Adacel or Boostrix, TDaP [id number] Refused 05/17/2011 Zostavax [id number] Refused 06/04/2009 Flu, Split Virus 3Yrs Vital [...] Erythrocyte Sed Rate 9 mm/Hr 0-40 4 Urine Micro Inhouse 08/22/2017 Ua WBC 0-1 5 Ua RBC - 5 Ua Casts - 5 Ua Epi 3-5 5 Ua Other - 5 Ua Glucose - 5 Ua Bilirubin - 5 Ua Ketones - 5 Ua Specific [place] 1.010 5 Ua Blood - 5 Ua PH 6.0 5 Ua Protein tr 5 Ua Urobilinogen - 5 Ua Nitrite - 5 Ua Leukocytes tr 5 Laboratory test finding 08/22/2017 Occult Blood, F I T negative Comp Metabolic Panel 06/24/2017 Sodium 138 mmol/L [...] 54.1 >60 6 Egfr 69.5 >60 6, 7 Laboratory test finding 06/24/2017 C Reactive Protein < 1.00 mg/L &lt ; 5.00 6, 8 CBC Auto Diff 06/24/2017 White Blood Count [...] % 0 6 Laboratory test finding 06/24/2017 Erythrocyte Sed Rate 6 mm/Hr 0-40 6, 9 Laboratory test finding 05/06/2017 Hemoglobin A1c 5.5 Urinalysis With Microscopic 12/28/2016 Urine Color YELLOW Yellow 10 Urine Clarity CLEAR Clear 10 Urine Glucose - Dipstick NEGATIVE mg/dL Negative 10 Urine Bilirubin - Dipstick NEGATIVE Negative 10 Urine Ketone NEGATIVE mg/dL Negative 10 Urine Specific [place] <=1.005 Low 1.010-1.030 10 Urine Blood TRACE [...] >60 Egfr 61.1 >60 16 Laboratory test 09/21/2016 Hemoglobin A1c 6.3 finding Laboratory test 08/16/2016 Point of Care Glucose 129 mg/dL High 74-106 17 finding Laboratory test 07/26/2016 Fructosamine 202 mcmol/L 200 - 285 18 finding Basic Metabolic Panel 07/26/2016 Sodium 138 mmol/L 133-145 Potassium 3.9 mmol/L 3.5-5.0 Chloride 104 mmol/L 101-111 Co2 Carbon Dioxide 26 mmol/L 22-32 Anion Gap 8 mmol/L 2-11 Glucose 122 mg/dL High 70-100 Blood Urea Nitrogen 25 mg/dL High 6-24 Creatinine 1.06 mg/dL High 0.51-0.95 BUN/Creatinine Ratio 23.6 High 8-20 Calcium 9.8 mg/dL 8.6-10.3 Egfr Non- 51.9 >60 Egfr 66.7 >60 19 Laboratory test finding 07/20/2016 Erythrocyte Sed Rate 41 mm/Hr High 0- 40 20 CBC Auto Diff 07/20/2016 White Blood Count [...] 25 Ua Ketones - 25 Ua Specific [place] 1.030 25 Ua Blood - 25 Ua [...] Urine Ketone NEGATIVE mg/dL Negative Urine Specific [place] >=1.030 1.010-1.030 Urine Blood LARGE High Negative [...] <3.0 D-Dimer, Quantitative 5.71 ug/mL High 39 Urine Micro Inhouse 04/07/2015 Ua WBC 0-1 25 Ua RBC 0-2 25 Ua Casts - 25 Ua Epi 0-2 25 Ua Other - 25 Ua Glucose - 25 Ua Bilirubin - 25 Ua Ketones - 25 Ua Specific [place] 1.030 25 Ua Blood sm 25 Ua PH 5.0 25 Ua Protein - 25 Ua Urobilinogen - 25 Ua Nitrite - 25 Ua Leukocytes - 25 Culture Urine Inhouse 04/07/2015 Colonies no growth 25 Lyme Western Blot 03/13/2015 Lyme Disease IgG Ab WB Negative Negative Lyme Disease IgG Bands Present p41, kDa Lyme Disease IgM Ab WB Negative Negative Lyme Disease IgM Bands Present No bands detecte <SEE NOTE> kDa 40 Lyme Disease Interpretation See Comment 41 Arthritis Panel 03/13/2015 Uric Acid 3.3 mg/dL [...] Egfr Non- 53.8 >60 Egfr 69.2 >60 42 Laboratory test finding 03/13/2015 Creatine Kinase(CK) 74 U/L 10-223 C Reactive Protein 155.57 mg/L High < 5.00 43 Cyclic Citrullinated Pep Igg <15.6 U 44 Erythrocyte Sed Rate 79 mm/Hr High 0-40 Rheumatoid Factor <15 IU/mL <15 45 TSH (Thyroid Stim Horm) 2.15 ?IU/mL 0.34-5.60 Vitamin B12 386 pg/mL 180-914 46 Vitamin D Total 25(Oh) 16.8 ng/mL Low 30-50 Magnesium 2.0 mg/dL 1.9-2.7 Laboratory test 03/13/2015 Babesia microti PCR See Comment 47 finding Ehrlichia/Anaplasma 03/13/2015 Anaplasma phagocytophilum Negative Negative PCR Ehrlichia chaffeensis Negative Negative Ehrlichia ewingii/canis Negative Negative Ehrlichia muris-like Negative Negative 48 Hla B27 03/13/2015 Hla B27 Negative 49 Hla B27 Interp See Comment 50 Parvovirus B19 Igg & 03/13/2015 Parvovirus (B19) IgG 3.23 index < 0.90 51 Igm Antibody Parvovirus (B19) IgM Antibody 0.13 index <0.90 52 Parvovirus Interpretation See Comment 53 Laboratory test finding 10/03/2013 Hepatitis C [...] % 40.4-72.8 Lymph % 40.5 % 17.0-46.1 [place] % 8.2 % 4.3-13.2 Eo% 5.4 % 0.0-6.6 Bas% 1.6 % High 0.0-1.1 Neut# 1.89 K/uL 1.0-7.0 Lymph # 1.73 K/uL 0.8-3.4 [place] # 0.35 K/uL 0.3-0.9 Eos # 0.23 [...] in selective patients <6.0%. Please refer to [place] [employer] diabetic care guidelines for further [...] labs 2 days before follow up 7 Because ethnic data is not always readily [...] 15-29 5 Kidney failure <15 (or dialysis) 8 Acute inflammation: >10.00 9 Please check labs 2 days before follow up 10 Z01.818 11 URINE, CLEAN CATCH 12 [...] 5 Kidney failure <15 (or dialysis) 17 Bowl Topper: [id number] 18 Test Performed by: [address] [address] 19 Because ethnic data is not always readily [...] 15-29 5 Kidney failure <15 (or dialysis) 20 Please check 2 days before her [...] <15 (or dialysis) 24 Test Performed by: [place] [address] 25 void, clear, yellow 26 Because ethnic [...] submitted in 7-14 days. Test Performed by: [address] [address] Bench Molder Apprentice: Олег Albert II, M.D., Ph.D. 30 Test Performed by: [place] [address] Bench Molder Apprentice: Олег Albert II, M.D., Ph.D. 31 Because [...] 36 06/04/15 LAB.TOW Deleted by Reflex Group [facility] 37 POSSIBLE UROGENITAL CONTAMINATION. 38 Organism 1 [...] DVT, or Pulmonary embolism as clinically indicated. ([facility] has established a 97.89% negative predictive value for thrombotic disease when a cutoff value of 0.5 ug/mL is used.) 40 No bands detected 41 Specific serologic response to B. burgdorferi infection [...] screening test (e.g., EIA). Test Performed by: [place] [address] Bench Molder Apprentice: Олег Albert II, M.D., Ph.D. 42 Because ethnic data is not always readily [...] 15-29 5 Kidney failure <15 (or dialysis) 43 Acute inflammation: >10.00 44 REFERENCE VALUE <20.0 (Negative) Test Performed by: [place] [address] Bench Molder Apprentice: Олег Albert II, M.D., Ph.D. 45 Test Performed by: [place] [address] Bench Molder Apprentice: Олег Albert II, M.D., Ph.D. 46 Normal Range 180 to 914 Indeterminate Range 145 to 180 Deficient Range <145 47 Test Result Flag Unit RefValue Babesia species, PCR, B Babesia microti Negative Negative Babesia duncani Negative Negative Babesia divergens/MO-1 Negative Negative ADDITIONAL INFORMATION Laboratory developed test. Test Performed by: [place] [address] Bench Molder Apprentice: Олег Albert II, M.D., Ph.D. 48 ADDITIONAL INFORMATION Laboratory developed test. Test Performed by: [place] [address] Bench Molder Apprentice: Олег Albert II, M.D., Ph.D. 49 REFERENCE VALUE Not Applicable 50 RESULT: HLA-B27 antigen was not detected. ADDITIONAL INFORMATION Method: Flow Cytometry Performing Laboratory CLIA# [id number] Test Performed by: [place] [address] Bench Molder Apprentice: Олег Albert II, M.D., Ph.D. 51 Positive 52 Negative 53 RESULT: Results suggest past infection. Test Performed by: [place] [address] Bench Molder Apprentice: Олег Albert II, M.D., Ph.D. 54 Desirable [...] when interpreting QuantiFERON-TB results. Test Performed by: [place] [address] Bench Molder Apprentice: Durga Bell III, M.D. 59 Note: Persistent [...] may be found at [email or web address]. 60 QUERY: @[facility] ID: [id number] QUERY: @[facility] Req #: [id number] 61 ---- RUN DATE: 07/08/10 [facility] NMI LIVE PAGE 1 RUN TIME: 1622 Specimen Inquiry RUN USER: INTERFACE -- Name: JANE MAGANA Status: REG REF Re07/03/10 Age/Sex: 59/F Unit#: [id number] Location: [facility] : 48 -- Specimen: [id number] SOUT Spec Date: 07/03/[address]: Urban merritt MD Spec Type: SURGICAL [...] 07/08/10 1622 -- -- DEPARTMENT OF PATHOLOGY, [address] [place] [address] [facility] Permit #[id number] Joni Red M.D. Director Roseanna Smith M.D. Clean Out Driller Helper Dir tarangoor -- 62 Classification: Desirable . 63 CALCULATED [...] scheduled when she recovers from surgery) 12/10/2016 23590 Electrocardiogram Complete Completed 04/22/2015 17772 Bronchospasm Evaluation Pre Completed & Post 08/30/2011 86622 Bronchospasm Evaluation Pre Completed & Post 08/02/2011 08868 Oximetry, Single Completed 07/03/2010 31788 Biopsy Skin Lesion Single Completed 05/08/2010 72829 X-Ray Knee, Complete Completed 03/14/2009 19076 Spirometry Completed 03/14/2009 03729 Electrocardiogram Complete Completed 05/12/2005 Colonoscopy Completed normal 08/22/17: repeat scope declined, FIT provided Encounters Type Date Location Provider CPT E/M Dx Office Visit 09/08/2017 10:20a Main Office Angelica Gotti, P.Carol 69461 R21 B37.2 Office Visit 08/22/2017 1:15p Main Office Urban Tripp M.D. 83140 R31.0 M25.511 Z12.31 E11.9 R19.7 E66.9 Z12.11 Z79.84 Office Visit 05/06/2017 1:30p Main Office Urban Tripp M.D. 21730 E11.65 M35.3 M06.00 E66.9 Office Visit 03/19/2017 9:30a Main Office Urban Tripp M.D. 97959 R91.1 R19.7 R15.2 E66.9 Office Visit 12/10/2016 3:30p Main Office Urban Tripp M.D. 03062 Z01.818 M17.0 M35.3 F41.1 E66.9 B37.2 E11.65 Office Visit 09/21/2016 1:30p Main Office Urban Tripp M.D. 56127 E11.65 M35.3 M17.0 M06.00 F41.1 Office Visit 06/29/2016 4:15p Main Office Jorge Penn D.O. 97330 E11.65 Office Visit 06/16/2016 12:55p Main Office Urban Tripp M.D. 57085 M06.00 M35.3 E11.65 E66.9 Z68.32 Office Visit 04/07/2016 4:20p [place] [address] M17.0 M25.561 M35.3 Office Visit 03/19/2016 1:15p Main Office Urban Tripp M.D. 70391 M17.0 M25.561 R93.422 R91.1 E66.9 M54.5 Office Visit 12/24/2015 11:30a Main Office Urban Tripp M.D. 49997 R73.01 E66.9 M17.0 F41.1 R93.4 R91.1 Z23 Office Visit 11/03/2015 9:45a Main Office Urban Tripp M.D. 91222 R31.0 Z12.11 R10.2 Z12.31 R93.4 R91.1 Z00.01 M25.50 R73.01 E66.9 Z01.818 H26.9 Office Visit 09/15/2015 1:30p Main Office Urban Tripp M.D. 91972 R73.9 M25.50 R73.01 E66.9 Z92.241 F41.1 Office Visit 04/22/2015 1:30p Main Office Urban Tripp M.D. 54664 M25.50 E66.9 J84.114 R05 R79.82 Z68.33 Office Visit 04/14/2015 4:15p Main Office Jorge Penn D.O. 85329 M25.561 M79.641 M34.81 Office Visit 04/07/2015 3:00p Main Office Jorge Penn D.O. 10749 M25.561 M79.641 E55.9 M54.2 M79.642 N39.41 R68.83 Office Visit 03/28/2015 1:45p Main Office TaylorleticiaJorge D.O. 33877 M25.50 M79.1 E55.9 R79.82 R70.0 Office Visit 03/13/2015 1:15p Main Office Jorge ePnn D.O. 00224 M79.1 R21 R23.4 M25.50 Z13.0 Z13.828 Office Visit 02/18/2015 1:45p Main Office Urban Tripp M.D. 87759 E66.9 Z23 Z68.34 Z91.138 T50.5x6A Office Visit 12/09/2014 9:15a Main Office Urban Tripp M.D. 88158 278.00 V03.82 V07.2 Office Visit 08/21/2014 8:55a Main Office Urban Tripp M.D. 14433 278.00 V85.34 Office Visit 06/19/2014 8:55a Main Office Urban Tripp M.D. 08586 354.0 300.02 530.81 493.10 278.00 Office Visit 12/19/2013 11:15a Main Office Urban Tripp M.D. 57119 708.9 354.0 300.02 493.10 530.81 Office Visit 09/25/2013 10:30a Main Office Urban Tripp M.D. 49219 300.02 493.10 530.81 V77.91 V75.9 V74.1 V70.0 V70.3 708.9 Office Visit 06/26/2013 4:00p Main Office Urban Tripp M.D. 00567 278.00 300.02 493.10 Office Visit 03/19/2013 1:15p Main Office Urban Tripp M.D. 04699 706.2 278.00 Office Visit 01/09/2013 11:15a Main Office Urban Tripp M.D. 34429 278.00 300.02 338.29 346.10 V04.81 V05.8 V07.2 Office Visit 09/22/2012 1:30p Main Office Urban Tripp M.D. 44766 278.00 300.02 702.19 782.2 Office Visit 05/17/2012 4:30p Main Office Urban Tripp M.D. 49412 278.00 300.02 346.10 493.10 782.2 Office Visit 11/16/2011 9:30a Main Office Urban Tripp M.D. 54650 786.2 278.00 782.2 719.45 493.10 300.02 346.10 Office Visit 08/30/2011 2:30p Main Office Urban Tripp M.D. 41616 493.10 786.2 327.52 Office Visit 08/02/2011 11:30a Main Office Urban Tripp M.D. 60763 493.10 493.12 Office Visit 05/17/2011 4:00p Main Office Urban Tripp M.D. 26928 300.02 346.10 493.10 477.9 V65.49 Office Visit 10/30/2010 2:45p Main Office Urban Tripp M.D. 98856 300.02 346.10 715.16 724.3 354.0 Office Visit 08/06/2010 4:20p Main Office Vilma Hines 75666 724.3 719.46 Office Visit 07/23/2010 4:00p Main Office Vilma Hines 62908 796.2 719.46 782.3 724.3 Office Visit 07/03/2010 4:00p Main Office Urban Tripp M.D. 51939 238.2 300.02 Office Visit 05/08/2010 10:45a Main Office Urban Tripp M.D. 66959 238.2 719.46 300.02 346.10 715.16 Office Visit 12/02/2009 10:30a Main Office Urban Tripp M.D. 15530 300.02 493.10 477.9 346.10 786.09 V70.0 V03.82 V06.1 V07.2 278.00 Office Visit 06/04/2009 4:00p Main Office Urban Tripp M.D. 55334 493.10 477.9 300.02 Office Visit 03/14/2009 4:15p Main Office Urban Tripp M.D. 42565 300.02 346.10 786.09 786.50 796.2 Office Visit 02/17/2009 1:15p Main Office Urban Tripp M.D. 19437 372.72 Office Visit 09/11/2008 4:30p Main Office Urban Tripp M.D. 50633 300.02 346.10 477.9 Office Visit 04/19/2008 4:45p Main Office Urban Tripp M.D. 85191 724.4 300.02 Office Visit 03/13/2008 12:55p Main Office Urban Tripp M.D. 08108 719.41 346.10 300.02 278.02 V65.49 Office Visit 09/22/2007 4:45p Main Office Urban Tripp M.D. 71694 346.10 300.02 719.46 719.45 Office Visit 03/22/2007 4:30p Main Office Urban Tripp M.D. 91993 346.10 300.02 Office Visit 09/19/2006 4:30p Main Office Urban Tripp M.D. 85707 346.10 300.02 278.02 Office Visit 04/27/2006 4:30p Main Office Urban Tripp M.D. 34931 784.0 346.10 300.02 Office Visit 01/19/2006 4:30p Main Office Urban Tripp M.D. 02513 784.0 346.10 300.02 372.14 Office Visit 10/20/2005 9:30a Main Office Urban Tripp M.D. 23853 784.0 346.10 300.02 708.8 Office Visit 07/13/2005 4:30p Main Office Urban Tripp M.D. 26883 300.02 784.0 346.10 Office Visit 04/13/2005 4:30p Main Office Urban Tripp M.D. 40166 300.02 784.0 Office Visit 03/12/2005 4:15p Main Office Urban Tripp M.D. 87615 300.02 783.1 461.9 784.0 Office Visit 12/29/2004 3:45p Main Office Urban Tripp M.D. 40811 300.02 V76.51 V77.91 Office Visit 11/24/2004 3:15p Main Office Urban Tripp M.D. 80709 300.02 Office Visit 03/25/2004 4:45p Main Office Urban Tripp M.D. 64619 461.9 723.1 Office Visit 02/05/2004 8:55a Main Office Urban Tripp M.D. 63276 461.9 Office Visit 11/22/2003 2:15p Main Office yohannes 48059 477.8 300.02 Plan of Care Future Appointment(s):10/26/2017 3:45 pm - Urban Tripp M.D. at Main [facility]0209/10/2017 - Jorge Penn D.O.R21 Rash and other nonspecific skin eruptionNew Medication:Itraconazole 100 mgB37.2 Candidiasis of skin and nail
[2017-09-28 12:17] VITALS: BP 119/99
--- NOTE | 2017-09-28 12:50 | UC ---
Lower Extremity/Ankle HPI - HPI Summary HPI Summary: ATraumatic right ankle pain. this started about 2-3 weeks ago which coincides with a recent PMR flare. She is on prednisone 40mg daily for about 3 weeks. She has mild DM. She described pain and instability of the ankle. - History of Current Complaint Chief Complaint: UCLowerExtremity Stated Complaint: RT ANKLE PAIN *2WKS Time Seen by Provider: 09/28/17 12:09 Hx Obtained From: Patient Hx Last Menstrual Period: n/a Onset/Duration: Gradual Onset, Lasting Weeks Severity Initially: Moderate Severity Currently: Moderate Pain Intensity: 7 Aggravating Factor(s): Standing, Ambulation Alleviating Factor(s): Rest, Elevation Able to Bear Weight: Yes - Allergies/Home Medications Allergies/Adverse Reactions: Allergies Allergy/AdvReac Type Severity Reaction Status Date / Time carisoprodol Allergy Hives Verified 09/28/17 12:01 Sulfa (Sulfonamide Allergy Hives Verified 09/28/17 12:01 Antibiotics) azithromycin AdvReac Diarrhea Verified 09/28/17 12:01 Home Medications: Home Medications predniSONE TAB* [Deltasone 10 MG TAB*] 40 mg PO DAILY 09/28/17 [History Confirmed 09/28/17] PMH/Surg Hx/FS Hx/Imm Hx Previously Healthy: No Other History Of: Anticoagulant Therapy - Aspirin. Negative For: HIV, Hepatitis B, Hepatitis C - Surgical History Surgical History: Yes Surgery Procedure, Year, and Place: 03/2014 RIGHT WRIST CARPAL TUNNEL RELEASE, [facility]; LT CARPAL TUNNEL RELEASE 2 MONTHS LATER, [facility] Cataract SURGERY 2016. right knee replacement. RIGHT THUMB SURGER - Family History Known Family History: Positive: Hypertension Negative: Cardiac Disease - Social History Alcohol Use: None Substance Use Type: None Smoking Status (MU): Former Smoker Type: Cigarettes Amount Used/How Often: 1 PPD x 20 Years Have You Smoked in the Last Year: No When Did the Patient Quit Smoking/Using Tobacco: ~1992 - Immunization History Most Recent Influenza Vaccination: no Review of Systems Musculoskeletal: Arthralgia All Other Systems Reviewed And Are Negative: Yes Physical Exam Triage Information Reviewed: Yes Appearance: Well-Appearing, Obese Vital Signs: Initial Vital Signs Temp 98 F 09/28/17 12:06 Pulse 78 09/28/17 12:06 Resp 18 09/28/17 12:06 BP 119/99 09/28/17 12:06 Pulse Ox 98 09/28/17 12:06 Vital Signs Reviewed: Yes Eyes: Positive: Conjunctiva Clear ENT: Positive: Normal ENT inspection Neck: Positive: Supple, Nontender, No Lymphadenopathy Respiratory: Positive: Accessory muscle use. Negative: Respiratory distress Cardiovascular: Positive: Brisk Capillary Refill Abdomen Description: Negative: Distended, Guarding Musculoskeletal Exam: Other - There is lateral ankle tenderness pinpoint at the talofibular ligament. No swelling or effusion. Not hot or red. No pain with passive rom testing. THere is no tenderness of the metatarsals. Neurological: Positive: Alert, Muscle Tone Normal. Negative: Fatigued Psychological: Positive: Age Appropriate Behavior Skin: Negative: rashes Lower Extremity Course/Dx - Differential Dx/Diagnosis Provider Diagnoses: right ankle pain Discharge - Sign-Out/Discharge Documenting (check all that apply): Discharge/Admit/Transfer - Discharge Plan Condition: Good Disposition: HOME Patient Education Materials: Arthralgia (ED) Referrals: Urban Tripp MD [Primary Care Provider] - - Billing Disposition and Condition Condition: GOOD Disposition: Home
--- NOTE | 2017-09-28 13:04 | RAD ---
INDICATION: Right ankle pain COMPARISON: None TECHNIQUE: AP, lateral, and oblique views were obtained. FINDINGS: The bony structures, joint spaces, and soft tissues are normal for age. IMPRESSION: NO ACUTE FINDINGS.
== END 2017-09-28 13:22 | disposition home or self-care (01) ==
LOC: UCCORT 11:50
DX: M25.571 Pain in right ankle and joints of right foot (principal); E11.9 Type 2 diabetes mellitus without complications; Z88.1 Allergy status to other antibiotic agents; Z88.2 Allergy status to sulfonamides; Z88.8 Allergy status to other drugs, medicaments and biological substances; Z87.891 Personal history of nicotine dependence
CPT/HCPCS: 99213; G0463

== ENCOUNTER 2019-02-17 10:35 | Emergency (ER) | payer MEDICARE, BC ==
--- OUTSIDE RECORDS SUMMARY | 2019-02-17 10:42 | XMS REPORT | Continuity of Care Document ---
:1950 External Reference #:[id number] Author Name Abi Miguel Care Team Providers Name Role Phone [facility] - Care Team Information Scroll Machine Operator [phone] Neurology Keke Pillai MD - Orthopaedic Care Team Information Scroll Machine Operator Surgery Hollis Malhotra MD - Rheumatology Care Team Information Scroll Machine Operator [phone] [facility] - Care Team Information Scroll Machine Operator [phone] Orthopaedic Surgery Joe Menchaca M.D. - Rheumatology Care Team Information Scroll Machine Operator [phone] Daniel Siegel MD - Orthopaedic Care Team Information Scroll Machine Operator [facility] - [facility] Medicine Care Team Information Scroll Machine Operator [phone] Problems Active Problems Provider Date Generalized anxiety disorder Urban Tripp M.D. Onset: 11/24/2004 Intrinsic asthma without status asthmaticus Urban Tripp M.D. Onset: Allergic rhinitis Urban Tripp M.D. Onset: 06/04/2009 Vitamin D deficiency Jorge Penn D.O. Onset: 03/28/2015 Neck pain Jorge Penn D.O. Onset: 04/07/2015 Obesity Urban Tripp M.D. Onset: 09/15/2015 Localized, primary osteoarthritis Urban Tripp M.D. Onset: 03/19/2016 Polymyalgia rheumatica Leida Zhu PA Onset: 04/07/2016 Type 2 diabetes mellitus Urban Tripp M.D. Onset: 08/22/2017 Rheumatoid arthritis Urban Tripp M.D. Onset: 10/26/2017 Social History Type Date Description Comments Sex Unknown Tobacco Use Start: Unknown Denies Cigarette Use ETOH Use 11/03/2015 Denies alcohol use Tobacco Use Start: Unknown End: Patient is a former smoker quit over 25 yrs ago Unknown Smoking Status Reviewed: 11/03/18 Patient is a former smoker quit over 25 yrs ago Allergies, Adverse Reactions, Alerts Active Allergies Reaction Severity Comments Date Soma Compound Hives 03/25/2004 Sulfa in childhood 03/25/2004 Zithromax extreme diarrhea 11/16/2011 Medications Active Medications SIG Qnty Indications Ordering Date Provider Acetaminophen 2 po each morning and Unknown 11/02/2018 325mg prn Tablets Venlafaxine HCL 1 by mouth every 3 F41.1 Silco, 11/02/2018 days Vadim Duggan 37.5mg Tablets Balance [place] marijuana spray Unknown 11/02/2018 Alrex Unknown 07/17/2018 0.2% Suspension Methotrexate 3 tabs by mouth every M06.00 Unknown 03/16/2018 2.5mg week for Ra/PMR Tablets Actemra Inject 1 Syringe M06.00 Unknown 10/25/2017 162mg/0.9ML Subcutaneously Every Soln Prefill Syringe Week Folic Acid 1 tablet by mouth 30tabs Unknown 08/31/2017 1mg daily Tablets Metformin HCL Take 1 Tablet Daily 90tabs E11.65 Silco, 08/22/2017 500mg For Blood Sugar Vadim Duggan Tablets Control Rosuvastatin Calcium Take 1 Tablet Every 90tabs E11.65 Silco, 05/06/2017 Day To Lower Vadim Duggan 10mg Tablets Cholesterol And Reduce Risk Of Heart Disease Hydrocodone-Acetamin 1 tablet every 6 60tabs M25.561 Silco, 04/07/2016 ophen hours as needed for Vadim Duggan 5-325mg Tablets severe pain Rogaine apply twice daily Unknown 03/18/2016 2% Solution Hydroxyzine HCL take 1 tablet by 90tabs Silcoff, 03/10/2015 25mg mouth three times a Vadim Duggan Tablets day if needed for itching or sleep Pantoprazole Sodium Take 1 Tablet Daily 90tabs K21.9 Silco, 09/25/2013 For Acid Reflux Vadim Duggan 40mg Tablets DR Pretty 1/2-1 at onset of 27tabs G43.009 Qasim, 01/27/2007 100mg Tablets migraine; may repeat Vadim Duggan once after 2 hours if needed Calcium + D3 1 po daily Unknown 600-200 Tablets History Medications Fluocinolone apply a thin 15gm D48.5 Urban Tripp, 07/31/2018 - Acetonide layer to affected M.D. 07/31/2018 0.01% Cream area on right upper back 2x/day until clear; resume if needed; if persists >1mo schedule appt for biopsy Mometasone Furoate apply a thin 15gm D48.5 Urban Tripp, 07/31/2018 - 0.1% layer to lesion M.D. 11/02/2018 Ointment on right upper back once/day until clear; resume if needed; if persists >1mo schedule appt for a biopsy H1N1 Swine Flu Urban Tripp, - Vaccine M.D. 06/04/2009 Injection Immunizations CPT Code Status Date Vaccine Lot # [id number] Given 09/22/2018 Shingrix Zoster (Shingles) Vaccine (HZV) Recomb,Subnit,Adjuvanted [id number] Given 07/04/2018 Shingrix Zoster (Shingles) Vaccine (HZV) Recomb,Subnit,Adjuvanted 93830 Given 12/16/2017 Influenza Vaccine Split Virus Preservative Free Im [id number] Use 67788 Given 12/24/2015 Pneumococcal Immunization [id number] 57361 Given 12/24/2015 Influenza Vaccine Split Virus Preservative Free Im [id number] Use 50471 Given 02/18/2015 Influenza Vaccine Split Virus Preservative Free Im [id number] Use 42420 Given 12/16/2014 Influenza Virus Vaccine, Quadrivalent, Split, Preservative Free 54781 Given 12/09/2014 Prevnar 13 [id number] 84290 Given 01/09/2013 Zostavax [id number] 70055 Given 01/09/2013 Flu, Split Virus 3Yrs [id number] 72939 Given 03/23/2010 Flu, Split Virus 3Yrs 62203 Given 12/02/2009 Pneumococcal Immunization [id number] 30934 Given 12/02/2009 Adacel or Boostrix, TDaP [id number] Refused 05/17/2011 Zostavax [id number] Refused 06/04/2009 Flu, Split Virus 3Yrs Vital Signs Date Vital Result Comment 11/03/2018 2:08pm BP Systolic 130 mmHg BP Diastolic 90 mmHg BP Systolic Recheck 130 mmHg BP Diastolic Recheck 90 mmHg Height 60.75 inches 5'0.75" Weight 188.00 lb BMI (Body Mass Index) 35.8 kg/m2 07/31/2018 9:01am BP Systolic 126 mmHg BP Diastolic 82 mmHg Height 60.5 inches 5'0.50" Weight 189.00 lb BMI (Body Mass Index) 36.3 kg/m2 Results Test Date Facility Test Result H/L Range Note aPTT 11/02/2018 N2N/CCD Import aPTT 24.2 s 22.0 - 34.3 Protime-Inr 11/02/2018 N2N/CCD Import Protime 9.8 s 9.2 - 11.9 Inr 0.95 Hemoglobin A1c 11/02/2018 N2N/CCD Import Hemoglobin A1c 5.7 % 4.0 - 6.0 Est. Average Glucose 117 mg/dL Comprehensive metabolic 11/02/2018 N2N/CCD Import Sodium 143 mmol/L 136 - 145 panel Potassium 4.3 mmol/L 3.6 - 5.2 Chloride 112 mmol/L High 100 - 108 Co2 23 mmol/L 22 - 31 Anion Gap 8 mmol/L 7 - 16 Urea nitrogen 25 mg/dL High 7 - 24 Creatinine 1.15 mg/dL High 0.60 - 1.00 BUN/Creatinine Ratio 21.7 High 10.0 - 20.0 Ratio Glucose 103 mg/dL High 70 - 99 Calcium 9.3 mg/dL 8.4 - 10.2 Protein, Total 6.8 g/dL 6.4 - 8.2 Albumin 4.2 g/dL 3.2 - 4.5 Globulin 2.6 g/dL Low 2.7 - 4.3 Alb/Glob ratio 1.6 Ratio Alkaline Phosphatase 66 U/L 45 - 117 Bilirubin, Total 0.4 mg/dL 0.0 - 1.0 Ast 22 U/L 11 - 39 Alt 44 U/L 12 - 78 GFR MDRD Non Af Amer 47 Low >59 ml/min/1.73m2 GFR MDRD Af Amer 57 Low >59 ml/min/1.73m2 Glom Filt Rate, Est See Notes CBC 11/02/2018 N2N/CCD Import WBC 5.4 10*3/uL 4.1 - 11.0 RBC 4.17 10*6/uL 4.00 - 5.40 Hemoglobin 13.8 g/dL 12.0 - 16.0 Hematocrit 40.5 % 36.0 - 47.0 MCV 97.2 fL High 80.0 - 95.0 MCH 33.1 pg High 27.0 - 32.0 MCHC 34.1 g/dL 32.0 - 36.0 RDW 14.0 % 10.5 - 14.5 Platelets 252 10*3/uL 150 - 450 MPV 8.8 fL 7.1 - 10.7 Urinalysis 11/02/2018 N2N/CCD Import Color, Ua Yellow Appearance Clear Specific [place], Ua 1.024 1.003 - 1.030 pH, Urine 5.0 5.0 - 7.5 Leukocyte Esterase Negative Negative Nitrite, Ua Negative Negative Protein, Ua Negative Negative Glucose, Ua Negative Negative Ketones, Ua Negative Negative Urobilinogen, Ua 0.2 mg/dL 0 - 1.0 Bilirubin, Ua Negative Negative Blood, Ua Negative Negative Laboratory test finding 07/31/2018 In House Hemoglobin A1c 5.8 Procedures Date Code Description Status 11/02/2018 [id number] Diabetic Retinal Eye Exam Completed 09/26/2018 [id number] Mammogram Completed 12/16/2017 [id number] Diabetic Foot Exam Completed 05/12/2005 [id number] Colonoscopy Completed Medical Devices Description No Information Available Encounters Type Date Location Provider Dx Diagnosis Office Visit 11/03/2018 Main Office Angelica Gotti Z01.818 Encounter for other 2:00p P.A. preprocedural examination I73.9 Peripheral vascular disease, unspecified E11.65 Type 2 diabetes mellitus with hyperglycemia M35.3 Polymyalgia rheumatica M06.00 Rheumatoid arthritis without rheumatoid factor, [facility] site K21.9 Gastro-esophageal reflux disease without esophagitis N18.3 Chronic kidney disease, stage 3 (moderate) M25.562 Pain in left knee M17.12 Unilateral primary osteoarthritis, left knee Z68.35 Body mass index (BMI) 35.0-35.9, adult Office Visit 07/31/2018 8:55a Main Office Urban Tripp, E11.9 Type 2 diabetes M.DLiborio mellitus without complications D48.5 Neoplasm of uncertain behavior of skin M35.3 Polymyalgia rheumatica M06.00 Rheumatoid arthritis without rheumatoid factor, [facility] site M54.16 Radiculopathy, lumbar region K21.9 Gastro-esophageal reflux disease without esophagitis M17.0 Bilateral primary osteoarthritis of knee R53.81 Other [place] Assessments Date Code Description Provider 11/03/2018 Z01.818 Encounter for other preprocedural Angelica [place], P.A. examination 11/03/2018 I73.9 Peripheral vascular disease, unspecified Angelica [place], P.A. 11/03/2018 E11.65 Type 2 diabetes mellitus with hyperglycemia Angelica Tucson , P.A. 11/03/2018 M35.3 Polymyalgia rheumatica Angelica [place], P.A. 11/03/2018 M06.00 Rheumatoid arthritis without rheumatoid Angelica [place]son, P.A. factor, unspecified 11/03/2018 K21.9 Gastro-esophageal reflux disease without Angelica Tucson, P.A. esophagitis 11/03/2018 N18.3 Chronic kidney disease, stage 3 (moderate) Angelica Tucson, P.A. 11/03/2018 M25.562 Pain in left knee Nagelica Tucson, P.A. 11/03/2018 M17.12 Unilateral primary osteoarthritis, left knee Angelica Tucson , P.A. 11/03/2018 Z68.35 Body mass index (BMI) 35.0-35.9, adult Angelica Tucson, P.A. 07/31/2018 E11.9 Type 2 diabetes mellitus without Urban Tripp M.D. complications 07/31/2018 D48.5 Neoplasm of uncertain behavior of skin Urban Tripp M.D. 07/31/2018 M35.3 Polymyalgia rheumatica Urban Tripp M.D. 07/31/2018 M06.00 Rheumatoid arthritis without rheumatoid Urban Tripp M.D. factor, unspecified 07/31/2018 M54.16 Radiculopathy, lumbar region Urban Tripp M.D. 07/31/2018 K21.9 Gastro-esophageal reflux disease without Urban Tripp M.D. esophagitis 07/31/2018 M17.0 Bilateral primary osteoarthritis of knee Urban Tripp M.D. 07/31/2018 R53.81 Other malaise Urban Tripp M.D. Plan of Treatment Future Appointment(s):01/29/2019 8:55 am - Urban Tripp M.D. at [facility]/03/2018 - Vilma HinesZ01.818 Encounter for other preprocedural examinationComments:patient is low risk for surgery planned.they have no prior anaesthetic related complications.they are advised to inform their surgeon of any acute illness which may occur between now and surgical date. Pre operative labs are not available to me as of this date. the surgeon and coroner/medical examiner will need to review these prior to surgery and notify me of any questions Cleared for planned surgery.Follow up:Pt swims a couple days a week for 45 minutes a day : laps. Performs some ADL regularly but less than in the past due to knee painI73.9 Peripheral vascular disease, uadaynibfycG95.65 Type 2 diabetes mellitus with hyperglycemiaFollow up:well controlled with A1C: 5.7%M35.3 Polymyalgia ekkkllkyroG11.00 Rheumatoid arthritis without rheumatoid factor, unspecifiedFollow up:Stop medications as you discussed with Dr. SiegelK21.9 Gastro-esophageal reflux disease without psizhaxmuwwL12.3 Chronic kidney disease , stage 3 (moderate)Follow up:Stage 3A. Has been this low off and on for at least 3 cznfdY53.562 Pain in left kneeM17.12 Unilateral primary osteoarthritis, left kneeZ68.35 Body mass index (BMI) 35.0-35.9, adult Functional Status Description No Information Available Mental Status Description No Information Available Referrals Refer to Reason for Referral Status Appt Date Pain Clinic Longstanding L sided LBP w/ radicular component. PT Closed /0000 feels it is of SI etiology. Pt is interested in exploring option of medical MJ for pain control. She is not interested in puirsuing any injection tx. Consult and Co-treatment [facility] [place] [address] [phone]
--- OUTSIDE RECORDS SUMMARY | 2019-02-17 10:42 | XMS REPORT | Continuity of Care Document ---
:1950 External Reference #:[id number] Author Name Urban Tirpp M.D. Address [address] [place] [id number] Care Team Providers Name Role Phone [facility] - Care Team Information Heel [facility] Neurology Keke Pillai MD - Orthopaedic Care Team Information Heel [facility] Surgery Hollis Malhotra MD - Rheumatology Care Team Information [facility] - Care Team Information Heel Breaster Orthopaedic Surgery Joe Menchaca M.D. - Rheumatology Care Team Information Heel Breaster Daniel Siegel MD - Orthopaedic Care Team Information [facility] - [facility] Medicine Care Team Information Heel Breaster [phone] Problems Active Problems Provider Date Generalized anxiety disorder Urban Tripp M.D. Onset: 11/24/2004 Intrinsic asthma without status asthmaticus Urban Tripp M.D. Onset: Allergic rhinitis Urban Tripp M.D. Onset: 06/04/2009 Vitamin D deficiency Jorge Penn DLoretta Onset: 03/28/2015 Neck pain Jorge Penn D.O. Onset: 04/07/2015 Obesity Urban Tripp M.D. Onset: 09/15/2015 Localized, primary osteoarthritis Urban Tripp M.D. Onset: 03/19/2016 Polymyalgia rheumatica Leida Zhu PA Onset: 04/07/2016 Type 2 diabetes mellitus Urban Tripp M.D. Onset: 08/22/2017 Rheumatoid arthritis Urban Tripp M.D. Onset: 10/26/2017 Social History Type Date Description Comments Sex Unknown Tobacco Use Reviewed: 01/29/19 Denies Cigarette Use ex-smoker, quit ~age 39 Smoking Status Reviewed: 01/29/19 Denies Cigarette Use ex-smoker, quit ~age 39 ETOH Use 11/03/2015 Denies alcohol use Tobacco Use Start: Unknown End: Patient is a former smoker quit over 25 yrs ago Unknown Allergies, Adverse Reactions, Alerts Active Allergies Reaction Severity Comments Date Soma Compound Hives 03/25/2004 Sulfa in childhood 03/25/2004 Zithromax extreme diarrhea 11/16/2011 Medications Active Medications SIG Qnty Indications Ordering Date Provider Clotrimazole/Betamet apply to affected 45units B37.2 Qasim, 01/29/2019 hasone Dipropionate area in left armpit 3 Vadim Duggan times a day as needed 1-0.05% Cream for rash Multivitamin Women daily Unknown 01/28/2019 Tablets Oxycodone-Acetaminop take 1 tablet by Unknown 01/02/2019 hen mouth every 8 hours 5-325mg Tablets if needed for pain Acetaminophen 2 po each morning and Unknown 11/02/2018 325mg prn Tablets Venlafaxine HCL 1 by mouth every 3 F41.1 co, 11/02/2018 days Vadim Duggan 37.5mg Tablets Alrex Unknown 07/17/2018 0.2% Suspension Methotrexate 3 tabs by mouth every M06.00 Unknown 03/16/2018 2.5mg week for Ra/PMR Tablets Actemra Inject 1 Syringe M06.00 Unknown 10/25/2017 162mg/0.9ML Subcutaneously Every Soln Prefill Syringe Week Folic Acid 1 tablet by mouth 30tabs Unknown 08/31/2017 1mg daily Tablets Metformin HCL Take 1 Tablet Daily 90tabs E11.9 Silcoff, 08/22/2017 500mg For Blood Sugar Vadim Duggan Tablets Control Rosuvastatin Calcium Take 1 Tablet Every 90tabs E11.9 Silcoff, 05/06/2017 Day To Lower Vadim Duggan 10mg Tablets Cholesterol And Reduce Risk Of Heart Disease Rogaine apply twice daily Unknown 03/18/2016 2% Solution Hydroxyzine HCL take 1 tablet by 90tabs Qasim, 03/10/2015 25mg mouth three times a Vadim Duggan Tablets day if needed for itching or sleep Pantoprazole Sodium Take 1 Tablet Daily 90tabs K21.9 Qasim, 09/25/2013 For Acid Reflux Vadim Duggan 40mg Tablets DR Pretty 1/2-1 at onset of 27tabs G43.009 Qasim, 01/27/2007 100mg Tablets migraine; may repeat Vadim Duggan once after 2 hours if needed Calcium + D3 1 po daily Unknown 600-200 Tablets History Medications Balance [place] marijuana spray Unknown 11/02/2018 - 01/28/2019 Fluocinolone apply a thin layer 15gm D48.5 Urban Tripp, 07/31/2018 - Acetonide to affected area M.D. 07/31/2018 0.01% Cream on right upper back 2x/day until clear; resume if needed; if persists >1mo schedule appt for biopsy Mometasone Furoate apply a thin layer 15gm D48.5 Urban Tripp, 2018 - 0.1% to lesion on right M.D. 11/02/2018 Ointment upper back once/day until clear; resume if needed; if persists >1mo schedule appt for a biopsy H1N1 Swine Flu Urban Tripp, - Vaccine M.D. 06/04/2009 Injection Immunizations CPT Code Status Date Vaccine Lot # [id number] Given 01/29/2019 Influenza Vaccine, Inactivated, Subunit, Adjuvanted, For Intrmusc 38746 Given 09/22/2018 Shingrix Zoster (Shingles) Vaccine (HZV) Recomb,Subnit,Adjuvanted 88796 Given 07/04/2018 Shingrix Zoster (Shingles) Vaccine (HZV) Recomb,Subnit,Adjuvanted 24244 Given 12/16/2017 Influenza Vaccine Split Virus Preservative Free Im [id number] Use 68983 Given 12/24/2015 Pneumococcal Immunization [id number] 28107 Given 12/24/2015 Influenza Vaccine Split Virus Preservative Free Im [id number] Use 10338 Given 02/18/2015 Influenza Vaccine Split Virus Preservative Free Im [id number] Use 49666 Given 12/16/2014 Influenza Virus Vaccine, Quadrivalent, Split, Preservative Free 92165 Given 12/09/2014 Prevnar 13 [id number] 25468 Given 01/09/2013 Zostavax [id number] 94936 Given 01/09/2013 Flu, Split Virus 3Yrs [id number] 04947 Given 03/23/2010 Flu, Split Virus 3Yrs 64376 Given 12/02/2009 Pneumococcal Immunization [id number] 37593 Given 12/02/2009 Adacel or Boostrix, TDaP [id number] 49053 Refused 05/17/2011 Zostavax [id number] Refused 06/04/2009 Flu, Split Virus 3Yrs Vital Signs Date Vital Result Comment 01/29/2019 9:02am BP Systolic 126 mmHg BP Diastolic 92 mmHg Weight 185.00 lb 11/03/2018 2:08pm BP Systolic 130 mmHg BP Diastolic 90 mmHg BP Systolic Recheck 130 mmHg BP Diastolic Recheck 90 mmHg Height 60.75 inches 5'0.75" Weight 188.00 lb BMI (Body Mass Index) 35.8 kg/m2 Results Test Acquired Date Facility Test Result H/L Range Note Laboratory test 01/29/2019 In House Hemoglobin A1c 5.5 finding aPTT 11/02/2018 N2N/CCD Import aPTT 24.2 s [...] Import Color, Ua Yellow Appearance Clear Specific [place], Ua 1.024 1.003 - 1.030 pH, Urine 5.0 5.0 - 7.5 Leukocyte Esterase Negative Negative Nitrite, Ua Negative Negative Protein, Ua Negative Negative Glucose, Ua Negative Negative Ketones, Ua Negative Negative Urobilinogen, Ua 0.2 mg/dL 0 - 1.0 Bilirubin, Ua Negative Negative Blood, Ua Negative Negative Laboratory test finding 07/31/2018 In House Hemoglobin A1c 5.8 Procedures Date Code Description Status 01/29/2019 [id number] Diabetic Foot Exam Completed 11/02/2018 [id number] Diabetic Retinal Eye Exam Completed 09/26/2018 [id number] Mammogram Completed 05/12/2005 [id number] Colonoscopy Completed Medical Devices Description No Information Available Encounters Type Date Location Provider Dx Diagnosis Office Visit 01/29/2019 Main Office Urban Tripp, E11.9 Type 2 diabetes 8:55a M.D. mellitus without complications K21.9 Gastro-esophageal reflux disease without esophagitis M35.3 Polymyalgia rheumatica M06.00 Rheumatoid arthritis without rheumatoid factor, [facility] site M54.5 Low back pain Z12.11 Encounter for screening for malignant neoplasm of colon Z23 Encounter for immunization Z41.8 Encntr for oth proc for purpose oth [facility] Office Visit 11/03/2018 2:00p Main Office Angelica Gotti, Z01.818 Encounter for other P.A. preprocedural examination I73.9 Peripheral vascular disease, unspecified E11.65 Type 2 diabetes mellitus with hyperglycemia M35.3 Polymyalgia rheumatica M06.00 Rheumatoid arthritis without rheumatoid factor, [facility] site K21.9 Gastro-esophageal reflux disease without esophagitis N18.3 Chronic kidney disease, stage 3 (moderate) M25.562 Pain in left knee M17.12 Unilateral primary osteoarthritis, left knee Z68.35 Body mass index (BMI) 35.0-35.9, adult Office Visit 07/31/2018 8:55a Main Office Urban Tripp, E11.9 Type 2 diabetes M.D. mellitus without complications D48.5 Neoplasm of uncertain behavior of skin M35.3 Polymyalgia rheumatica M06.00 Rheumatoid arthritis without rheumatoid factor, [facility] site M54.16 Radiculopathy, lumbar region K21.9 Gastro-esophageal reflux disease without esophagitis M17.0 Bilateral primary osteoarthritis of knee R53.81 Other malaise Assessments Date Code Description Provider 01/29/2019 E11.9 Type 2 diabetes mellitus without Urban Tripp M.D. complications 01/29/2019 K21.9 Gastro-esophageal reflux disease without Urban Tripp M.D. esophagitis 01/29/2019 M35.3 Polymyalgia rheumatica Urban Tripp M.D. 01/29/2019 M06.00 Rheumatoid arthritis without rheumatoid Urban Tripp M.D. factor, unspecified 01/29/2019 M54.5 Low back pain Urban Tripp M.D. 01/29/2019 Z12.11 Encounter for screening for malignant Urban Tripp M.D. neoplasm of colon 01/29/2019 Z23 Encounter for immunization Urban Tripp M.D. 01/29/2019 Z41.8 Encounter for other procedures for purposes Urban Tripp M.D. other than [facility] state 11/03/2018 Z01.818 Encounter for other preprocedural Angelica Stephenson, P.A. examination 11/03/2018 I73.9 Peripheral vascular disease, unspecified Angelica Stephenson, P.A. 11/03/2018 E11.65 Type 2 diabetes mellitus with hyperglycemia Angelica Stephenson , P.A. 11/03/2018 M35.3 Polymyalgia rheumatica Angelica Stephenson, P.A. 11/03/2018 M06.00 Rheumatoid arthritis without rheumatoid Angelica Stephenson, P.A. factor, unspecified 11/03/2018 K21.9 Gastro-esophageal reflux disease without Angelica Stephenson, P.A. esophagitis 11/03/2018 N18.3 Chronic kidney disease, stage 3 (moderate) Angelica Stephenson, P.A. 11/03/2018 M25.562 Pain in left knee Angelica Stephenson, P.A. 11/03/2018 M17.12 Unilateral primary osteoarthritis, left knee Angelica Stephenson , P.A. 11/03/2018 Z68.35 Body mass index (BMI) 35.0-35.9, adult Angelica Stephenson, P.A. 07/31/2018 E11.9 Type 2 diabetes mellitus [...] Urban Tripp M.D. Plan of Treatment Future Appointment(s):07/16/2019 8:30 am - Urban Tripp M.D. at Main Mnxtxt9111/03/2018 - Vilma HinesZ01.818 Encounter for other preprocedural examinationComments:patient is low risk for surgery planned.they have no prior anaesthetic related complications.they are advised to inform their surgeon of any acute illness which may occur between now and surgical date. Pre operative labs are not available to me as of this date. the surgeon and visiting housekeeper will need to review these prior to surgery and notify me of any questions Cleared for planned surgery.Follow up:Pt swims a couple days a week for 45 minutes a day : laps. Performs some ADL regularly but less than in the past due to knee painI73.9 Peripheral vascular disease, pwvkrwuufuaC16.65 Type 2 diabetes mellitus with hyperglycemiaFollow up:well controlled with A1C: 5.7%M35.3 Polymyalgia skwttxskldZ30.00 Rheumatoid arthritis without rheumatoid factor, unspecifiedFollow up:Stop medications as you discussed with Dr. SiegelK21.9 Gastro-esophageal reflux disease without aidolziojqrW61.3 Chronic kidney disease , stage 3 (moderate)Follow up:Stage 3A. Has been this low off and on for at least 3 yozrpZ26.562 Pain in left kneeM17.12 Unilateral primary osteoarthritis, [...] puirsuing any injection tx. Consult and Co-treatment [facility] [address] [place] [id number] [phone]
--- OUTSIDE RECORDS SUMMARY | 2019-02-17 10:42 | XMS REPORT | Continuity of Care Document ---
:1950 External Reference #:[id number] Author Name Joe Menchaca M.D. (transmitted by agent of provider Brigitte Rasheed) Address [address] [place] [id number] Care Team Providers Name Role Phone Joe Menchaca MD - Rheumatology Care Team Information Chemic Mangler Problems Active Problems Provider Date Polyarthropathy Peterson Mensah M.D. Onset: 04/23/2015 C-reactive protein abnormal Peterson Mensah M.D. Onset: 04/23/2015 ESR raised Peterson Mensah M.D. Onset: 04/23/2015 Degenerative joint disease involving multiple Peterson Mensah M.D. Onset: joints Common variable agammaglobulinemia Peterson Mensah M.D. Onset: 05/12/2015 Disorder of lung Sheela Loja MD Onset: 05/22/2015 Disturbance in sleep behavior Sheela Loja MD Onset: 05/22/2015 Obesity Sheela Loja MD Onset: 05/22/2015 Generalized hyperhidrosis Peterson Mensah M.D. Onset: 06/09/2015 Long-term current use of systemic steroid Peterson Mensah M.D. Onset: 2015 Localized, primary osteoarthritis Peterson Mensah M.D. Onset: 06/09/2015 Solitary nodule of lung Sheela Loja MD Onset: 03/17/2016 Osteoarthritis of first carpometacarpal joint, Fracisco Jin MD Onset: unspecified Social History Type Date Description Comments Sex Unknown Tobacco Use Start: Unknown End: Former Cigarette Smoker Unknown Smoking Status Reviewed: 12/25/18 Former Cigarette Smoker ETOH Use Denies alcohol use Tobacco Use Start: Unknown End: Patient is a former 2 ppd x 23 yrs, Unknown smoker quit 20 years ago Recreational Drug Use Denies Drug Use Exercise Type/Frequency Exercises regularly Exercise Type/Frequency Swims 2 times a week Allergies, Adverse Reactions, Alerts Active Allergies Reaction Severity Comments Date Sulfa Antibiotics hives 03/04/2014 Soma hives 04/23/2015 Zithromax diarrhea 04/23/2015 Medications Active Medications SIG Qnty Indications Ordering Date Provider Shingrix 0.5 milliliters 2units Joe Menchaca, 07/05/2018 intramuscular times M.D. 50mcg/0.5ML 1, followed by 0.5ml Suspension Rec intramuscular 2-6 months after dose #1 Clonidine HCL take 1/2 tab daily by 30tabs R23.2 Joe Menchaca, 01/23/2018 0.1mg mouth once daily as M.D. Tablets needed for hot flashes Voltaren apply 2 grams twice 200units M35.3 Joe Menchaca, 10/10/2017 1% Gel daily as needed for M.D. pain to your right lateral ankle Actemra Inject 1 Syringe 5.4units M35.3 Joe Menchaca, 05/14/2016 162mg/0.9ML Subcutaneously Every M.D. Soln Prefill Week Syringe Methotrexate Take 3 Tablets Once 96tabs Z79.52 oJe Menchaca, 04/15/2016 2.5mg Weekly M.D. Tablets Folic Acid Take 1 Tablet Daily 90tabs Joe Menchaca, 04/15/2016 1mg M.D. Tablets D3-1000 take one 90tabs E55.9 Joe Menchaca, 11/06/2015 1000Unit capsule/tablet daily M.D. Tablets by mouth (not sure if 1000 or 5000 units 03/14/17) Oxycodone-Acetamino Unknown phen 5-325mg Tablets Metformin HCL 1 by mouth twice a Unknown 500mg day Tablets Rogaine Womens apply to scalp 2 x Unknown 2% per day Foam Tinactin Unknown 1% Aerosol Calcium 1200 1 by mouth every day Unknown 8286-0130mg-Mdfq Chewtabs Aspir-81 1 by mouth every day Unknown 81mg Tablets DR Haleyzine HCL 1 tab by mouth daily Unknown 5mg prn hives Tablets Vitamin D3 1 by mouth every day Unknown 5000Unit (not sure if 1000 or Tablets 5000 units) Hydroxyzine HCL 1 po tid prn itching Unknown or sleep 25mg Tablets Ventolin HFA 2 puffs q 4 hrs prn Unknown 108(90Base) mcg/Act Aerosol Sumatriptan 1/2 - 1 at onset of Unknown Succinate migraine, may repeat 100mg in 2 hrs prn Tablets Venlafaxine HCL ER 1 po qod Unknown 37.5mg Caps ER 24HR Pantoprazole Sodium 1 po qd Unknown 40mg Tablets DR Medications Administered in Office Medication SIG Qnty Indications Ordering Provider Date Celestone 3 mg and 3mg Sheela Loja MD 12/28/2016 Injection Depomedrol 80MG Keke Pillai M.D. 05/15/2014 Injection Immunizations CPT Code Status Date Vaccine Reaction Lot # [id number] Given 03/16/2017 Influenza Virus Vaccine, no immediate reaction [id number] Quadrivalent, Split, noted Preservative Free 20671 Given 12/16/2014 Influenza Virus Vaccine, Quadrivalent, Split, Preservative Free 27844 Given 12/09/2014 Pneumococcal Conjugate Vaccine 13 Valent For Intramuscular Use 12421 Given 12/02/2009 Pneumonia Vaccine Vital Signs Date Vital Result Comment 12/25/2018 11:11am Height 59.50 inches 4'11.50" Weight 183.38 lb Heart Rate 87 /min BP Systolic Sitting 122 mmHg BP Diastolic Sitting 80 mmHg Pain Level 4 O2 % BldC Oximetry 98 % BMI (Body Mass Index) 36.4 kg/m2 07/19/2018 3:05pm Height 59.50 inches 4'11.50" Weight 186.00 lb Heart Rate 94 /min BP Systolic Sitting 120 mmHg BP Diastolic Sitting 82 mmHg Pain Level 3 O2 % BldC Oximetry 96 % BMI (Body Mass Index) 36.9 kg/m2 Results Test Date Facility Test Result H/L Range Note Laboratory test 12/22/2018 [facility] Erythrocyte Sed 18 mm/Hr Normal 0-29 [address] [place] [address] [phone] C Reactive Protein 4.95 mg/L Normal <8.01 2 CBC Auto 12/22/2018 [facility] White Blood 6.5 10^3/uL Normal 3.5-10.[address] [place] [address] [phone] Red Blood Count 4.16 10^6/uL Normal 3.70-4.87 Hemoglobin 13.3 g/dL Normal 12.0-16.0 Hematocrit 39 % Normal 35-47 Mean Corpuscular Volume 95 fL Normal 80-97 Mean Corpuscular Hemoglobin 32 pg High 27-31 Mean Corpuscular HGB Conc 34 g/dL Normal 31-36 Red Cell Distribution Width 14 % Normal 10-15 Platelet Count 355 10^3/uL Normal 150-450 Mean Platelet Volume 7.9 fL Normal 7.4-10.4 Abs Neutrophils 3.8 10^3/uL Normal 1.5-7.7 Abs Lymphocytes 1.8 10^3/uL Normal 1.0-4.8 Abs Monocytes 0.6 10^3/uL Normal 0-0.8 Abs Eosinophils 0.3 10^3/uL Normal 0-0.6 Abs Basophils 0.0 10^3/uL Normal 0-0.2 Abs Nucleated RBC 0.0 10^3/uL Granulocyte % 58.7 % Lymphocyte % 28.3 % Monocyte % 8.6 % Eosinophil % 3.9 % Basophil % 0.5 % Nucleated Red Blood Cells % 0.1 Comp Metabolic 12/22/2018 [facility] Sodium 139 mmol/L Normal 135-[address] [place] [address] [phone] Potassium 4.2 mmol/L Normal 3.5-5.0 Chloride 108 mmol/L Normal 101-111 Co2 Carbon Dioxide 22 mmol/L Normal 22-32 Anion Gap 9 mmol/L Normal 2-11 Glucose 153 mg/dL High 70-100 Blood Urea Nitrogen 20 mg/dL Normal 6-24 Creatinine 1.08 mg/dL High 0.51-0.95 BUN/Creatinine Ratio 18.5 Normal 8-20 Calcium 9.7 mg/dL Normal 8.6-10.3 Total Protein 6.6 g/dL Normal 6.4-8.9 Albumin 4.5 g/dL Normal 3.2-5.2 Globulin 2.1 g/dL Normal 2-4 Albumin/Globulin Ratio 2.1 Normal 1-3 Total Bilirubin 0.40 mg/dL Normal 0.2-1.0 Alkaline Phosphatase 101 U/L Normal 34-104 Alt 14 U/L Normal 7-52 Ast 16 U/L Normal 13-39 Egfr Non- 50.3 >60 Egfr 60.9 >60 3 Comp Metabolic 07/17/2018 [facility] Sodium 141 mmol/L Normal 135-[address] [place] [address] [phone] Potassium 4.4 mmol/L Normal 3.5-5.0 Chloride 108 mmol/L Normal 101-111 Co2 Carbon Dioxide 23 mmol/L Normal 22-32 Anion Gap 10 mmol/L Normal 2-11 Glucose 121 mg/dL High 70-100 Blood Urea Nitrogen 23 mg/dL Normal 6-24 Creatinine 1.07 mg/dL High 0.51-0.95 BUN/Creatinine Ratio 21.5 High 8-20 Calcium 9.9 mg/dL Normal 8.6-10.3 Total Protein 6.5 g/dL Normal 6.4-8.9 Albumin 4.6 g/dL Normal 3.2-5.2 Globulin 1.9 g/dL Low 2-4 Albumin/Globulin Ratio 2.4 Normal 1-3 Total Bilirubin 0.80 mg/dL Normal 0.2-1.0 Alkaline Phosphatase 53 U/L Normal 34-104 Alt 29 U/L Normal 7-52 Ast 23 U/L Normal 13-39 Egfr Non- 51.0 >60 Egfr 61.7 >60 4 Laboratory test 07/17/2018 [facility] C Reactive < 1.00 Normal <8.[address] Protein mg/[place] [address] [phone] CBC Auto Diff 07/17/2018 [facility] White Blood 4.2 Normal 3.5 -10.[address] Count 10^3/[place] [address] [phone] Red Blood Count 4.26 10^6/uL Normal 3.70-4.87 Hemoglobin 13.9 g/dL Normal 12.0-16.0 Hematocrit 41 % Normal 33-41 Mean Corpuscular Volume 97 fL Normal 80-97 Mean Corpuscular Hemoglobin 33 pg High 27-31 Mean Corpuscular HGB Conc 34 g/dL Normal 31-36 Red Cell Distribution Width 14 % Normal 10.5-15 Platelet Count 284 10^3/uL Normal 150-450 Mean Platelet Volume 8.1 fL Normal 7.4-10.4 Abs Neutrophils 1.1 10^3/uL Low 1.5-7.7 Abs Lymphocytes 2.6 10^3/uL Normal 1.0-4.8 Abs Monocytes 0.4 10^3/uL Normal 0-0.8 Abs Eosinophils 0.2 10^3/uL Normal 0-0.6 Abs Basophils 0 10^3/uL Normal 0-0.2 Abs Nucleated RBC 0 10^3/uL Granulocyte % 25.4 % Lymphocyte % 60.9 % Monocyte % 9.0 % Eosinophil % 3.9 % Basophil % 0.8 % Nucleated Red Blood Cells % 0.1 Laboratory test 07/17/2018 [facility] Erythrocyte Sed 0 mm/Hr Normal 0-[address] [place] [address] [phone] 1 Please check labs 2 days before follow up 2 Please check labs 2 days before follow up 3 Because ethnic data is not always readily [...] 15-29 5 Kidney failure <15 (or dialysis) 4 Because ethnic data is not always readily [...] 15-29 5 Kidney failure <15 (or dialysis) Procedures Date Code Description Status 01/27/2018 884156791 Bone Mineral Density Test Completed 09/25/2015 [id number] Diabetic Retinal Eye Exam Completed 07/29/2015 [id number] Bone Mineral Density Test Completed Medical Devices Description No Information Available Encounters Type Date Location Provider Dx Diagnosis Office Visit 07/19/2018 Rheumatology Codie [email or web address].[email or web address] Rheumatoid 3:00p [facility] Vadim arthritis w/o rheumatoid factor, multiple sites M35.3 Polymyalgia rheumatica Z79.899 Other longterm (current) drug therapy M85.89 Oth disrd of bone density and structure, multiple sites Assessments Date Code Description Provider 12/25/2018 M06.09 Rheumatoid arthritis without rheumatoid Vadim Carnes, multiple sit 12/25/2018 M35.3 Polymyalgia rheumatica Joe Menchaca M.D. 12/25/2018 Z79.899 Other technician terminal and repeater (current) drug therapy Joe Menchaca M.D. 12/25/2018 R53.83 Other fatigue Joe Menchaca M.D. 07/19/2018 M06.09 Rheumatoid arthritis without rheumatoid Vadim Carnes, multiple sit 07/19/2018 M35.3 Polymyalgia rheumatica Joe Menchaca M.D. 07/19/2018 Z79.899 Other technician terminal and repeater (current) drug therapy Joe Menchaca M.D. 07/19/2018 M85.89 Other specified disorders of bone density and Joe Menchaca M.D. structure, mul Plan of Treatment Future Appointment(s):03/26/2019 11:20 am - Joe Menchaca M.D. at [facility]/25/2018 - Joe Menchaca M.D.M06.09 Rheumatoid arthritis without rheumatoid factor, multiple sitM35.3 Polymyalgia zjixszjfuoF26.899 Other longterm (current) drug fprhfqyG91.83 Other fatigueFollow up:Follow up in 3 months or sooner if needed Functional Status Description No Information Available Mental Status Description No Information Available Referrals Description No Information Available
[2019-02-17 11:29] VITALS: BP 137/78
--- NOTE | 2019-02-17 11:49 | UC ---
Skin Complaint HPI - HPI Summary HPI Summary: Pt presents with c/o sudden onset of dry patch of skin at bridge of nose and inner left eye and right eye. dry patch began in left inner eye and has enlarged. Pt has smaller dry area on right inner eye. Pt wears glasses. Pt is immuno compromised and states she gets frequent skin fungal infections. Pt i straveling to [facility] in two days Pt denies that rash is painful. - History of Current Complaint Chief Complaint: UCSkin Time Seen by Provider: 02/17/19 11:40 Stated Complaint: SKIN COMPLAINT-FACE Hx Obtained From: Patient Hx Last Menstrual Period: n/a ?: No Onset/Duration: Gradual Onset, Lasting Days, Still Present, Worse Since - osnet Skin Exposure Onset/Duration: Days Ago Timing: Constant Onset Severity: Mild Current Severity: Mild Pain Intensity: 0 Location: Face Aggravating Factor(s): Nothing Alleviating Factor(s): Nothing Associated Signs & Symptoms: Positive: Rash - dry skin patch - Allergy/Home Medications Allergies/Adverse Reactions: Allergies Allergy/AdvReac Type Severity Reaction Status Date / Time carisoprodol Allergy Hives Verified 02/17/19 11:19 Sulfa (Sulfonamide Allergy Hives Verified 02/17/19 11:19 Antibiotics) azithromycin AdvReac Diarrhea Verified 02/17/19 11:19 Home Medications: Home Medications oxyCODONE/Acetam5/325MG PREPAK [Percocet 5/325 TAB*] 1 tab PO Q8H PRN 02/17/19 [ History Confirmed 02/17/19] PMH/Surg Hx/FS Hx/Imm Hx Previously Healthy: Yes Other History Of: Anticoagulant Therapy - Aspirin. Negative For: HIV, Hepatitis B, Hepatitis C - Surgical History Surgical History: Yes Surgery Procedure, Year, and Place: Bilateral carpal tunnel. bilateral TKR. bilateral cataracts. R thumb - Family History Known Family History: Positive: Hypertension Negative: Cardiac Disease - Social History Occupation: Retired Lives: With Family Alcohol Use: None Substance Use Type: None Smoking Status (MU): Former Smoker Type: Cigarettes Amount Used/How Often: 1 PPD x 20 Years Have You Smoked in the Last Year: No When Did the Patient Quit Smoking/Using Tobacco: ~1992 - Immunization History Most Recent Influenza Vaccination: no Review of Systems All Other Systems Reviewed And Are Negative: Yes Constitutional: Positive: Negative Skin: Positive: Rash Eyes: Positive: Negative ENT: Positive: Negative Respiratory: Positive: Negative Cardiovascular: Positive: Negative Gastrointestinal: Positive: Negative Genitourinary: Positive: Negative Motor: Positive: Negative Neurovascular: Positive: Negative Musculoskeletal: Positive: Negative Neurological: Positive: Negative Psychological: Positive: Negative Is Patient Immunocompromised?: No Physical Exam Triage Information Reviewed: Yes Appearance: Well-Appearing Vital Signs: Initial Vital Signs Temp 98 F 02/17/19 11:22 Pulse 94 02/17/19 11:22 Resp 16 02/17/19 11:22 BP 137/78 02/17/19 11:22 Pulse Ox 100 02/17/19 11:22 Vital Signs Reviewed: Yes Eye Exam: Normal ENT Exam: Normal Dental Exam: Normal Neck exam: Normal Respiratory Exam: Normal Respiratory: Positive: No respiratory distress Musculoskeletal Exam: Normal Neurological Exam: Normal Psychological Exam: Normal Skin: Positive: Rashes - dry flaky skin left inner corner of eye and partially on bridge of nose, no erythema, nol drainage or blisters. smaller area of dry flaky skin righ tinner corner of eye. Course/Dx - Course Course Of Treatment: I discussed with the pt the need to keep skin well moisturized and protected from sun exposure. Pt verbalized understanding and agreed to plan of care. - Differential Diagnoses - Skin Complaint Differential Diagnoses: Eczema, Tinea - Diagnoses Provider Diagnosis: Dry skin Discharge ED - Sign-Out/Discharge Documenting (check all that apply): Patient Departure All imaging exams completed and their final reports reviewed: No Studies - Discharge Plan Condition: Stable Disposition: HOME Patient Education Materials: Antifungals (On the skin), Sunscreen (On the skin) Referrals: Urban Tripp MD [Primary Care Provider] - If Needed Additional Instructions: Please follow up with your PCP as needed. Please keep the affected area well moisturized with unscented lotion such as Aquaphor. Please keep your skin well protected from the sun. If your symptoms worsen, please seek care at the closest healthcare facility as soon as possible. - Billing Disposition and Condition Condition: STABLE Disposition: Home - Attestation Statements Provider Attestation: I was available for consult. This patient was seen by the [facility]. The patient was not presented to , seen by or examined by az -Naye Aguirre MD
== END 2019-02-17 11:59 | disposition home or self-care (01) ==
LOC: UCCORT 10:35
DX: L98.8 Other specified disorders of the skin and subcutaneous tissue (principal); Z88.2 Allergy status to sulfonamides; Z88.1 Allergy status to other antibiotic agents; Z88.8 Allergy status to other drugs, medicaments and biological substances; Z87.891 Personal history of nicotine dependence
CPT/HCPCS: 99211; G0463